=== PATIENT | female | born 1935 | race Caucasian/White ===

== ENCOUNTER 2018-05-21 18:58 | Inpatient (IN) | payer MEDICARE, BC ==
[~2018-05-21] VITALS: Ht 167.6 cm; Wt 81.7 kg
[2018-05-21] MEDS ORDERED: SODIUM CHLORIDE 0.9% 1,000 ML IVB ONE (19:45)
[2018-05-21 20:05] LABS: Basophils # (auto) 0.1 uL; Basophils % (auto) 1.1 % (0.0-2.0); Eosinophils # (auto) 0.1 uL; Eosinophils % (auto) 1.2 % (0.0-7.0); Hematocrit 33.4 % (36.0-46.0); Lymphocytes # (auto) 1.6 uL; Mean Corpuscular Hemoglobin 27.1 pg (28.0-32.0); Mean Corpuscular Volume 82.1 fL (80.0-100.0); Monocytes # (auto) 0.7 uL; Monocytes % (auto) 6.4 % (0.0-12.0); Neutrophils # (auto) 8.3 uL; Neutrophils % (auto) 76.3 % (37.0-80.0); Nucleated Red Blood Cells % 0.1 %; Platelet Count (auto) 360 10^3/uL (140-450); Red Blood Cells 4.07 10^6/uL (4.0-5.20); White Blood Cell 10.8 10^3/uL (4.4-10.8)
[2018-05-21 20:27] LABS: Urine Bacteria NONE SEEN /hpf (None Seen); Urine Blood Negative /uL (Negative); Urine Specific Gravity 1.004 (1.001-1.035); Urine WBC <1 /hpf (0 - 5)
[2018-05-21 20:40] LABS: Alanine Aminotransferase 14 U/L (13-56); Albumin 3.3 g/dL (3.4-5.0); Alkaline Phosphatase 83 U/L (45-117); Anion Gap 12 (5-15); Aspartate Aminotransferase 19 U/L (15-37); BUN/Creatinine Ratio 9.3; Bilirubin, Total 0.9 mg/dL (0.2-1.0); Blood Urea Nitrogen 10 mg/dL (7-18); Calcium 9.1 mg/dL (8.5-10.1); Carbon Dioxide 28 mmol/L (21-32); Chloride 95 mmol/L (98-107); GFR African American 63 mL/min; GFR Non-African American 52 mL/min; Glucose 128 mg/dL (74-106); Magnesium 2.6 mg/dL (1.6-2.6); Potassium 3.6 mmol/L (3.5-5.1); Sodium 135 mmol/L (136-145); Total Protein 7.5 g/dL (6.4-8.2)
[2018-05-21 21:06] LABS: INR 1.07 (0.9-1.15); Partial Thromboplastin Time 29.4 sec (23.78-33.04); Prothrombin Time 11.4 sec (9.27-12.13)
[2018-05-21] MEDS ORDERED: ONDANSETRON HCL 4 MG/2 ML VIAL IV ONE (21:30)
[2018-05-21] MEDS ORDERED: ASPirin 81 mg TAB PO ONE (21:45)
[2018-05-21] MEDS ORDERED: NITROGLYCERIN 0.4 MG SL TAB SL PRN (23:00)
[2018-05-21] MEDS ORDERED: MORPHINE SULF INJ 2 MG/ML SYRINGE 1ML IV PRN (23:00)
[2018-05-21] MEDS ORDERED: ONDANSETRON HCL 4 MG/2 ML VIAL IV PRN (23:15)
[2018-05-21] MEDS ORDERED: TEMAZEPAM 15 MG CAP PO PRN (23:15)
[2018-05-21] MEDS ORDERED: IBUPROFEN 600 MG TAB PO PRN (23:15)
[2018-05-22] VITALS (7 sets, daily range): BP systolic 90–120; BP diastolic 48–63
[2018-05-22] MEDS: ALPRAZolam 0.5 MG TAB PO PRN ×3 (01:15→23:20)
[2018-05-22] MEDS: traMADol HCL 50 MG TAB PO PRN ×2 (01:15→19:59)
[2018-05-22] MEDS ORDERED: GABA100C9 PO (05:14)
[2018-05-22] MEDS ORDERED: TRAM50TA2 PO (05:14)
[2018-05-22] MEDS ORDERED: SPIR25TA89 PO (05:20)
[2018-05-22] MEDS ORDERED: LEVO25TA6 PO (05:20)
[2018-05-22] MEDS ORDERED: PREG50CA PO (05:20)
[2018-05-22] MEDS ORDERED: APIX2.5T OR (05:20)
[2018-05-22] MEDS ORDERED: ROSU20TA14 PO (05:20)
[2018-05-22] MEDS ORDERED: AMIO200T33 PO (05:20)
[2018-05-22] MEDS ORDERED: FURO20TA PO (05:20)
[2018-05-22] MEDS ORDERED: CAR3125T OR (05:20)
[2018-05-22] MEDS ORDERED: DOCU100T15 PO (05:20)
[2018-05-22] MEDS ORDERED: ALPR0.5T PO (05:22)
[2018-05-22] MEDS ORDERED: GABAPENTIN 300 MG CAP PO SCH (06:00)
[2018-05-22] MEDS: MIDODRINE HCL 10 MG TAB PO SCH ×3 (06:24→18:00)
[2018-05-22] MEDS: LEVOTHYROXINE SODIUM 25 MCG TAB PO SCH (06:25)
[2018-05-22 07:11] LABS: Basophils # (auto) 0 uL; Eosinophils # (auto) 0.1 uL; Lymphocytes # (auto) 2.8 uL; Monocytes # (auto) 0.8 uL
[2018-05-22 07:14] LABS: Basophils % (auto) 0.5 % (0.0-2.0); Hematocrit 29.2 % (36.0-46.0); Hemoglobin 9.7 g/dL (12.2-16.2); Lymphocytes % (auto) 26.4 % (10.0-50.0); Mean Corpuscular Hemoglobin 27.1 pg (28.0-32.0); Mean Corpuscular Hgb Conc. 33.2 g/dL (32.0-36.0); Mean Corpuscular Volume 81.7 fL (80.0-100.0); Monocytes % (auto) 7.4 % (0.0-12.0); Neutrophils # (auto) 6.7 uL; Neutrophils % (auto) 64.7 % (37.0-80.0); Platelet Count (auto) 335 10^3/uL (140-450); Red Blood Cells 3.57 10^6/uL (4.0-5.20); Red Cell Distribution Width 18.2 % (11.8-14.3); White Blood Cell 10.4 10^3/uL (4.4-10.8)
[2018-05-22 07:31] LABS: BUN/Creatinine Ratio 12.9; Calcium 8.5 mg/dL (8.5-10.1); Potassium 3.4 mmol/L (3.5-5.1)
[2018-05-22] MEDS: CARVEDILOL 12.5 MG TAB PO SCH ×2 (11:57→15:00)
[2018-05-22] MEDS: AMIODARONE HCL 200 MG TAB PO SCH (11:58)
[2018-05-22] MEDS: DOCUSATE SOD 100 MG CAP PO SCH ×2 (11:58→22:08)
[2018-05-22] MEDS: APIXABAN 2.5 MG TAB PO SCH ×2 (11:58→22:08)
[2018-05-22] MEDS: FUROSEMIDE 40 MG TAB PO SCH (12:00)
[2018-05-22] MEDS ORDERED: ATORVASTATIN 20 MG TAB PO SCH (22:00)
[2018-05-22] MEDS: GABAPENTIN 100 MG CAP PO SCH (22:08)
[2018-05-23 05:00] VITALS: BP 98/50
[2018-05-23] MEDS: GABAPENTIN 100 MG CAP PO SCH ×3 (05:48→21:25)
[2018-05-23] MEDS: MIDODRINE HCL 10 MG TAB PO SCH ×3 (05:48→17:51)
[2018-05-23] MEDS: LEVOTHYROXINE SODIUM 25 MCG TAB PO SCH (05:49)
[2018-05-23] MEDS: traMADol HCL 50 MG TAB PO PRN ×2 (05:49→20:57)
[2018-05-23] MEDS: CARVEDILOL 12.5 MG TAB PO SCH ×2 (09:01→14:59)
[2018-05-23] MEDS: AMIODARONE HCL 200 MG TAB PO SCH (09:01)
[2018-05-23] MEDS: FUROSEMIDE 40 MG TAB PO SCH (09:01)
[2018-05-23] MEDS: APIXABAN 2.5 MG TAB PO SCH ×2 (09:02→21:25)
[2018-05-23] MEDS: DOCUSATE SOD 100 MG CAP PO SCH ×2 (09:02→21:25)
[2018-05-23 09:36] VITALS: BP 116/63
[2018-05-23] MEDS ORDERED: ASPirin 81 mg TAB PO SCH (10:00)
[2018-05-23] MEDS: HYDROmorphone HCL 2 MG TAB PO SCH ×2 (11:37→17:51)
[2018-05-23 12:56] VITALS: BP 110/68
[2018-05-23] MEDS: KETOROLAC TROMETH 60MG/2ML VIAL IM PRN (13:06)
[2018-05-23] MEDS: ALPRAZolam 0.5 MG TAB PO PRN (13:07)
[2018-05-23 17:16] VITALS: BP 105/50
[2018-05-23 22:00] VITALS: BP 90/55
[2018-05-24] MEDS: HYDROmorphone HCL 2 MG TAB PO SCH ×4 (00:20→18:13)
[2018-05-24 05:00] VITALS: BP 108/57
[2018-05-24] MEDS: KETOROLAC TROMETH 60MG/2ML VIAL IM PRN (05:47)
[2018-05-24] MEDS: MIDODRINE HCL 10 MG TAB PO SCH ×3 (06:19→18:12)
[2018-05-24] MEDS: LEVOTHYROXINE SODIUM 25 MCG TAB PO SCH (06:19)
[2018-05-24] MEDS: GABAPENTIN 100 MG CAP PO SCH ×3 (06:19→22:17)
[2018-05-24 08:30] VITALS: BP 95/50
[2018-05-24] MEDS: CARVEDILOL 12.5 MG TAB PO SCH ×2 (10:40→15:36)
[2018-05-24] MEDS: APIXABAN 2.5 MG TAB PO SCH ×2 (10:48→22:17)
[2018-05-24] MEDS: FUROSEMIDE 40 MG TAB PO SCH (10:49)
[2018-05-24] MEDS: DOCUSATE SOD 100 MG CAP PO SCH ×2 (10:49→22:17)
[2018-05-24 13:00] VITALS: BP 101/50
[2018-05-24] MEDS: AMIODARONE HCL 200 MG TAB PO SCH (14:25)
[2018-05-24 17:02] VITALS: BP 102/51
[2018-05-24 22:00] VITALS: BP 128/57
[2018-05-24] MEDS: traMADol HCL 50 MG TAB PO PRN (22:18)
[2018-05-25] MEDS: HYDROmorphone HCL 2 MG TAB PO SCH ×3 (00:51→12:37)
[2018-05-25] MEDS: KETOROLAC TROMETH 60MG/2ML VIAL IM PRN (04:16)
[2018-05-25 06:02] VITALS: BP 99/47
[2018-05-25] MEDS: LEVOTHYROXINE SODIUM 25 MCG TAB PO SCH (06:22)
[2018-05-25] MEDS: GABAPENTIN 100 MG CAP PO SCH ×2 (06:22→13:33)
[2018-05-25] MEDS: MIDODRINE HCL 10 MG TAB PO SCH ×2 (06:22→12:32)
[2018-05-25] MEDS ORDERED: ADENOSINE 69 MG in GIVE UN-DILUTED 0 ML IV STA (08:17)
[2018-05-25 09:00] VITALS: BP 109/51
[2018-05-25] MEDS: FUROSEMIDE 40 MG TAB PO SCH (12:31)
[2018-05-25] MEDS: AMIODARONE HCL 200 MG TAB PO SCH (12:33)
[2018-05-25] MEDS: APIXABAN 2.5 MG TAB PO SCH (12:34)
[2018-05-25] MEDS: DOCUSATE SOD 100 MG CAP PO SCH (12:37)
[2018-05-25] MEDS: CARVEDILOL 12.5 MG TAB PO SCH ×2 (12:37→16:33)
[2018-05-25 12:49] VITALS: BP 139/63
[2018-05-25] MEDS: ALPRAZolam 0.5 MG TAB PO PRN (13:37)
[2018-05-25 17:15] VITALS: BP 130/67
== END 2018-05-25 17:30 | DRG 291 ==
LOC: ER 19:03 → TELE 19:04 → CENTRAL 23:42
PROVIDERS: ADMIT Nurse Practitioner Family; ATTEND Family Medicine
DX: I13.0 Hypertensive heart and chronic kidney disease with heart failure and stage 1 through stage 4 chronic kidney disease, or unspecified chronic kidney disease (principal); I50.43 Acute on chronic combined systolic (congestive) and diastolic (congestive) heart failure; I48.1 Persistent atrial fibrillation; E66.9 Obesity, unspecified; N18.9 Chronic kidney disease, unspecified; I48.91 Unspecified atrial fibrillation; G20 Parkinson's disease; E03.9 Hypothyroidism, unspecified; D64.9 Anemia, unspecified; E78.00 Pure hypercholesterolemia, unspecified; E78.5 Hyperlipidemia, unspecified; F41.9 Anxiety disorder, unspecified; G62.9 Polyneuropathy, unspecified; M84.312A Stress fracture, left shoulder, initial encounter for fracture; I08.0 Rheumatic disorders of both mitral and aortic valves; Z88.0 Allergy status to penicillin; Z88.5 Allergy status to narcotic agent; Z88.1 Allergy status to other antibiotic agents; Z88.8 Allergy status to other drugs, medicaments and biological substances; Z91.81 History of falling; Z68.29 Body mass index [BMI] 29.0-29.9, adult
CPT/HCPCS: 36415; 71045; 73030; 73060; 73200; 78452; 80048; 80053; 81001; 82962; 83735; 83880; 84443; 84484; 85025; 85610; 85730; 87081; 93005; 93306; 94761; 96361; 96374; J0153; J1885; J2405

== ENCOUNTER 2018-06-24 06:03 | Inpatient (IN) | payer MEDICARE, BC ==
[~2018-06-24] VITALS: Ht 167.6 cm; Wt 78.7 kg
[~2018-06-24 06:03] MED LIST: ALPR0.5T PO; AMIO200T33 PO; APIX2.5T OR; CAR3125T OR; CHOL20007 PO; DOCU-94 PO; DOCU100T15 PO; FURO20TA PO; GABA100C9 PO; LACT10SO3 PO; LEVO25TA6 PO; MAGN400S25 PO; METO-281 PO; MID10T PO; MULT-228 PO; NITR0.4S29 SL; ONDA4TAB5 PO; PREG50CA PO; ROSU20TA14 PO; SPIR25TA89 PO; TEMA30CA PO; TRAM50TA2 PO
[2018-06-24 08:45] LABS: Basophils # (auto) 0 uL; Basophils % (auto) 0.5 % (0.0-2.0); Eosinophils # (auto) 0.1 uL; Eosinophils % (auto) 1.1 % (0.0-7.0); Hematocrit 31.9 % (36.0-46.0); Hemoglobin 10.4 g/dL (12.2-16.2); Lymphocytes # (auto) 2.1 uL; Lymphocytes % (auto) 29.6 % (10.0-50.0); Mean Corpuscular Hemoglobin 27.1 pg (28.0-32.0); Mean Corpuscular Hgb Conc. 32.5 g/dL (32.0-36.0); Mean Corpuscular Volume 83.2 fL (80.0-100.0); Monocytes # (auto) 0.4 uL; Monocytes % (auto) 6.1 % (0.0-12.0); Neutrophils # (auto) 4.5 uL; Neutrophils % (auto) 62.7 % (37.0-80.0); Platelet Count (auto) 159 10^3/uL (140-450); Red Blood Cells 3.84 10^6/uL (4.0-5.20); Red Cell Distribution Width 18.4 % (11.8-14.3); White Blood Cell 7.2 10^3/uL (4.4-10.8)
[2018-06-24 08:55] LABS: Albumin 3.3 g/dL (3.4-5.0); BUN/Creatinine Ratio 10.2; Calcium 8.6 mg/dL (8.5-10.1); Potassium 3.7 mmol/L (3.5-5.1)
[2018-06-24 08:59] LABS: Bilirubin, Total 0.6 mg/dL (0.2-1.0); Total Protein 6.7 g/dL (6.4-8.2)
[2018-06-24] MEDS ORDERED: cefTRIAXone 1GM/10ml IVPUSH 10 ML IV ONE (09:30)
[2018-06-24 09:34] LABS: Urine Bacteria MANY /hpf (None Seen); Urine Blood 2+ /uL (Negative); Urine WBC 1689 /hpf (0 - 5); Urine WBC Clumps PRESENT /hpf (None Seen)
[2018-06-24] MEDS ORDERED: MORPHINE SULF INJ 2 MG/ML SYRINGE 1ML IV PRN ×3 (10:00)
[2018-06-24] MEDS ORDERED: NITROGLYCERIN 0.4 MG SL TAB SL PRN (10:00)
[2018-06-24] MEDS ORDERED: TEMAZEPAM 15 MG CAP PO PRN (10:00)
[2018-06-24] MEDS ORDERED: LORazepam 0.5 MG TAB PO PRN (10:00)
[2018-06-24] MEDS ORDERED: SODIUM CHLORIDE 0.9% 1,000 ML IV ONE (10:15)
[2018-06-24 10:28] LABS: CRP High Sensitivity 1.29 mg/dL (< 0.3)
[2018-06-24] MEDS ORDERED: INSREGIDR IV (10:48)
[2018-06-24] MEDS ORDERED: LINE600T IV (10:48)
[2018-06-24] MEDS ORDERED: CARB10TA PO (10:51)
[2018-06-24] MEDS: metroNIDAZOLE 500MG/100ML 100 ML IV SCH ×3 (10:54→22:48)
[2018-06-24] MEDS: PROMETHAZINE HCL 25 MG/ML 1ML IV PRN ×2 (10:56→22:35)
[2018-06-24] MEDS ORDERED: DOCUSATE SOD 100 MG CAP PO PRN (11:15)
[2018-06-24] MEDS: ERTAPENEM SOD INJ 1 GM in SODIUM CHL 0.9% 50 ML IV SCH (11:55)
[2018-06-24] MEDS: PANTOPRAZOLE 40 MG TAB PO SCH (11:55)
[2018-06-24] MEDS: APIXABAN 5 MG TAB PO SCH ×2 (11:55→22:34)
[2018-06-24] MEDS: DAPTOmycin 500 MG in SODIUM CHL 0.9% 50 ML IV SCH (12:40)
[2018-06-24] MEDS: PREGABALIN 25 MG CAP PO SCH (13:09)
[2018-06-24] MEDS: traMADol HCL 50 MG TAB PO PRN (13:33)
[2018-06-24] MEDS: CARBIDOPA W LEVODOPA 25/100mg TABLET PO SCH ×2 (13:36→22:35)
[2018-06-24 19:00] VITALS: BP 98/45
[2018-06-24 22:00] VITALS: BP 98/45
[2018-06-24] MEDS: GABAPENTIN 300 MG CAP PO SCH (22:35)
[2018-06-24] MEDS: ALPRAZolam 0.5 MG TAB PO PRN (22:35)
[2018-06-24] MEDS: ATORVASTATIN 20 MG TAB PO SCH (22:35)
[2018-06-25 05:30] VITALS: BP 124/60
[2018-06-25] MEDS: metroNIDAZOLE 500MG/100ML 100 ML IV SCH ×4 (05:31→22:50)
[2018-06-25] MEDS: CARBIDOPA W LEVODOPA 25/100mg TABLET PO SCH ×3 (06:23→21:38)
[2018-06-25 06:26] LABS: Basophils # (auto) 0 uL; Basophils % (auto) 0.6 % (0.0-2.0); Eosinophils # (auto) 0.1 uL; Eosinophils % (auto) 1.6 % (0.0-7.0); Hematocrit 30.5 % (36.0-46.0); Hemoglobin 9.9 g/dL (12.2-16.2); Lymphocytes # (auto) 1.8 uL; Lymphocytes % (auto) 34.5 % (10.0-50.0); Mean Corpuscular Hemoglobin 27.4 pg (28.0-32.0); Mean Corpuscular Hgb Conc. 32.6 g/dL (32.0-36.0); Mean Corpuscular Volume 84.1 fL (80.0-100.0); Monocytes # (auto) 0.4 uL; Monocytes % (auto) 7.4 % (0.0-12.0); Neutrophils % (auto) 55.9 % (37.0-80.0); Nucleated Red Blood Cells % 0.1 %; Platelet Count (auto) 131 10^3/uL (140-450); Red Blood Cells 3.62 10^6/uL (4.0-5.20); Red Cell Distribution Width 18.8 % (11.8-14.3); White Blood Cell 5.3 10^3/uL (4.4-10.8)
[2018-06-25] MEDS: LEVOTHYROXINE SODIUM 25 MCG TAB PO SCH (06:33)
[2018-06-25 06:53] LABS: Calcium 8.1 mg/dL (8.5-10.1); Potassium 3.6 mmol/L (3.5-5.1)
[2018-06-25 06:59] LABS: BUN/Creatinine Ratio 11.1; Bilirubin, Total 0.5 mg/dL (0.2-1.0)
[2018-06-25 08:32] VITALS: BP 110/61
[2018-06-25] MEDS: PREGABALIN 25 MG CAP PO SCH ×2 (10:00→10:05)
[2018-06-25] MEDS: APIXABAN 5 MG TAB PO SCH ×2 (10:05→21:37)
[2018-06-25] MEDS: GABAPENTIN 300 MG CAP PO SCH ×2 (10:06→21:38)
[2018-06-25] MEDS: PANTOPRAZOLE 40 MG TAB PO SCH (10:06)
[2018-06-25] MEDS: MIDODRINE HCL 10 MG TAB PO SCH (10:06)
[2018-06-25] MEDS: ERTAPENEM SOD INJ 1 GM in SODIUM CHL 0.9% 50 ML IV SCH (10:25)
[2018-06-25 12:09] VITALS: BP 112/69
[2018-06-25] MEDS: DAPTOmycin 500 MG in SODIUM CHL 0.9% 50 ML IV SCH (14:36)
[2018-06-25 17:11] VITALS: BP 116/62
[2018-06-25] MEDS: PROMETHAZINE HCL 25 MG/ML 1ML IV PRN (19:37)
[2018-06-25 20:00] VITALS: BP 108/62
[2018-06-25] MEDS: ATORVASTATIN 20 MG TAB PO SCH (21:37)
[2018-06-25] MEDS: ALPRAZolam 0.5 MG TAB PO PRN (21:38)
[2018-06-25 22:00] VITALS: BP 108/62
[2018-06-26 04:52] VITALS: BP 123/59
[2018-06-26] MEDS: metroNIDAZOLE 500MG/100ML 100 ML IV SCH (04:58)
[2018-06-26] MEDS: PROMETHAZINE HCL 25 MG/ML 1ML IV PRN (04:59)
[2018-06-26] MEDS: CARBIDOPA W LEVODOPA 25/100mg TABLET PO SCH ×3 (06:00→21:21)
[2018-06-26] MEDS: LEVOTHYROXINE SODIUM 25 MCG TAB PO SCH (06:30)
[2018-06-26 09:00] VITALS: BP 115/57
[2018-06-26] MEDS: ERTAPENEM SOD INJ 1 GM in SODIUM CHL 0.9% 50 ML IV SCH (10:22)
[2018-06-26] MEDS: PREGABALIN 25 MG CAP PO SCH (10:23)
[2018-06-26] MEDS: PANTOPRAZOLE 40 MG TAB PO SCH (10:23)
[2018-06-26] MEDS: APIXABAN 5 MG TAB PO SCH ×2 (10:24→21:19)
[2018-06-26] MEDS: MIDODRINE HCL 10 MG TAB PO SCH (10:24)
[2018-06-26] MEDS: GABAPENTIN 300 MG CAP PO SCH ×2 (10:24→21:21)
[2018-06-26] MEDS: ALPRAZolam 0.5 MG TAB PO PRN ×2 (10:25→21:29)
[2018-06-26 13:00] VITALS: BP 131/82
[2018-06-26 17:45] VITALS: BP 123/71
[2018-06-26] MEDS: ATORVASTATIN 20 MG TAB PO SCH (21:19)
[2018-06-26 21:42] VITALS: BP 125/62
[2018-06-27] MEDS: PROMETHAZINE HCL 25 MG/ML 1ML IV PRN ×3 (03:02→21:48)
[2018-06-27 04:51] VITALS: BP 97/48
[2018-06-27] MEDS: CARBIDOPA W LEVODOPA 25/100mg TABLET PO SCH ×3 (06:15→21:42)
[2018-06-27] MEDS: LEVOTHYROXINE SODIUM 25 MCG TAB PO SCH (06:18)
[2018-06-27 06:30] VITALS: BP 120/53
[2018-06-27 06:41] LABS: Basophils # (auto) 0 uL; Basophils % (auto) 0.3 % (0.0-2.0); Eosinophils # (auto) 0.1 uL; Eosinophils % (auto) 1.3 % (0.0-7.0); Hematocrit 30.6 % (36.0-46.0); Lymphocytes # (auto) 2.1 uL; Lymphocytes % (auto) 27.8 % (10.0-50.0); Mean Corpuscular Hemoglobin 27.7 pg (28.0-32.0); Mean Corpuscular Hgb Conc. 32.7 g/dL (32.0-36.0); Mean Corpuscular Volume 84.5 fL (80.0-100.0); Monocytes # (auto) 0.8 uL; Monocytes % (auto) 10.5 % (0.0-12.0); Neutrophils # (auto) 4.5 uL; Neutrophils % (auto) 60.1 % (37.0-80.0); Platelet Count (auto) 119 10^3/uL (140-450); Red Blood Cells 3.62 10^6/uL (4.0-5.20); Red Cell Distribution Width 18.4 % (11.8-14.3); White Blood Cell 7.5 10^3/uL (4.4-10.8)
[2018-06-27 06:56] LABS: Calcium 8.2 mg/dL (8.5-10.1); Potassium 3.7 mmol/L (3.5-5.1)
[2018-06-27 09:00] VITALS: BP 108/64
[2018-06-27] MEDS ORDERED: GENTAMICIN PER PHARMACY 0 ML IV SCH (10:15)
[2018-06-27] MEDS: MIDODRINE HCL 10 MG TAB PO SCH (10:33)
[2018-06-27] MEDS: GABAPENTIN 300 MG CAP PO SCH ×2 (10:33→21:42)
[2018-06-27] MEDS: ALPRAZolam 0.5 MG TAB PO PRN ×2 (10:33→21:48)
[2018-06-27] MEDS: PANTOPRAZOLE 40 MG TAB PO SCH (10:33)
[2018-06-27] MEDS: APIXABAN 5 MG TAB PO SCH ×2 (10:33→21:41)
[2018-06-27] MEDS: PREGABALIN 25 MG CAP PO SCH (10:33)
[2018-06-27] MEDS: GENTAMICIN SULFATE IV SCH ×2 (11:16→22:58)
[2018-06-27] MEDS: D5W 5% IV SCH ×2 (11:16→22:58)
[2018-06-27 13:00] VITALS: BP 115/54
[2018-06-27 17:07] VITALS: BP 105/57
[2018-06-27] MEDS: ATORVASTATIN 20 MG TAB PO SCH (21:41)
[2018-06-27 22:00] VITALS: BP 126/61
[2018-06-28] MEDS: traMADol HCL 50 MG TAB PO PRN (01:45)
[2018-06-28 04:52] VITALS: BP 124/63
[2018-06-28] MEDS: CARBIDOPA W LEVODOPA 25/100mg TABLET PO SCH ×3 (06:20→22:50)
[2018-06-28] MEDS: LEVOTHYROXINE SODIUM 25 MCG TAB PO SCH (06:21)
[2018-06-28 06:28] LABS: Basophils # (auto) 0 uL; Eosinophils # (auto) 0.1 uL; Hemoglobin 9.8 g/dL (12.2-16.2); Lymphocytes # (auto) 2.4 uL; Monocytes # (auto) 0.7 uL; Neutrophils # (auto) 3.8 uL
[2018-06-28 06:29] LABS: Basophils % (auto) 0.4 % (0.0-2.0); Eosinophils % (auto) 1.8 % (0.0-7.0); Hematocrit 30.6 % (36.0-46.0); Lymphocytes % (auto) 33.7 % (10.0-50.0); Mean Corpuscular Hemoglobin 26.7 pg (28.0-32.0); Mean Corpuscular Volume 83.4 fL (80.0-100.0); Monocytes % (auto) 10.3 % (0.0-12.0); Neutrophils % (auto) 53.8 % (37.0-80.0); Platelet Count (auto) 136 10^3/uL (140-450); Red Blood Cells 3.67 10^6/uL (4.0-5.20); Red Cell Distribution Width 18.3 % (11.8-14.3); White Blood Cell 7.1 10^3/uL (4.4-10.8)
[2018-06-28 06:43] LABS: BUN/Creatinine Ratio 4.5; Calcium 8.4 mg/dL (8.5-10.1); Potassium 3.8 mmol/L (3.5-5.1)
[2018-06-28 09:02] VITALS: BP 120/57
[2018-06-28] MEDS: APIXABAN 5 MG TAB PO SCH ×2 (09:46→22:50)
[2018-06-28] MEDS: GABAPENTIN 300 MG CAP PO SCH ×2 (09:46→22:50)
[2018-06-28] MEDS: MIDODRINE HCL 10 MG TAB PO SCH (09:46)
[2018-06-28] MEDS: PANTOPRAZOLE 40 MG TAB PO SCH (09:46)
[2018-06-28] MEDS: PREGABALIN 25 MG CAP PO SCH (09:46)
[2018-06-28] MEDS: D5W 5% IV SCH ×2 (10:54→23:00)
[2018-06-28] MEDS: GENTAMICIN SULFATE IV SCH ×2 (10:54→23:00)
[2018-06-28 13:00] VITALS: BP 123/63
[2018-06-28 17:00] VITALS: BP 131/63
[2018-06-28 21:30] VITALS: BP 135/78
[2018-06-28] MEDS: ATORVASTATIN 20 MG TAB PO SCH (22:50)
[2018-06-28] MEDS: PROMETHAZINE HCL 25 MG/ML 1ML IV PRN (23:02)
[2018-06-28] MEDS: ALPRAZolam 0.5 MG TAB PO PRN (23:03)
[2018-06-29 05:00] VITALS: BP 119/60
[2018-06-29] MEDS: CARBIDOPA W LEVODOPA 25/100mg TABLET PO SCH ×3 (06:24→23:02)
[2018-06-29] MEDS: LEVOTHYROXINE SODIUM 25 MCG TAB PO SCH (06:24)
[2018-06-29 07:03] LABS: Basophils # (auto) 0 uL; Basophils % (auto) 0.5 % (0.0-2.0); Eosinophils # (auto) 0.2 uL; Eosinophils % (auto) 2.6 % (0.0-7.0); Hematocrit 29.7 % (36.0-46.0); Hemoglobin 9.9 g/dL (12.2-16.2); Lymphocytes # (auto) 2.5 uL; Lymphocytes % (auto) 38.1 % (10.0-50.0); Mean Corpuscular Hgb Conc. 33.4 g/dL (32.0-36.0); Mean Corpuscular Volume 83.7 fL (80.0-100.0); Monocytes # (auto) 0.7 uL; Monocytes % (auto) 10.4 % (0.0-12.0); Neutrophils # (auto) 3.1 uL; Neutrophils % (auto) 48.4 % (37.0-80.0); Nucleated Red Blood Cells % 0.1 %; Platelet Count (auto) 159 10^3/uL (140-450); Red Blood Cells 3.54 10^6/uL (4.0-5.20); Red Cell Distribution Width 18.4 % (11.8-14.3); White Blood Cell 6.5 10^3/uL (4.4-10.8)
[2018-06-29 07:28] LABS: Calcium 8.2 mg/dL (8.5-10.1); Potassium 3.8 mmol/L (3.5-5.1)
[2018-06-29 09:00] VITALS: BP 119/64
[2018-06-29] MEDS: MIDODRINE HCL 10 MG TAB PO SCH (10:00)
[2018-06-29] MEDS: GABAPENTIN 300 MG CAP PO SCH ×2 (10:00→23:01)
[2018-06-29] MEDS: PREGABALIN 25 MG CAP PO SCH (10:58)
[2018-06-29] MEDS: APIXABAN 5 MG TAB PO SCH ×2 (10:58→23:01)
[2018-06-29] MEDS: PANTOPRAZOLE 40 MG TAB PO SCH (10:59)
[2018-06-29] MEDS: ALPRAZolam 0.5 MG TAB PO PRN ×2 (11:04→23:08)
[2018-06-29 13:09] VITALS: BP 108/46
[2018-06-29 17:05] VITALS: BP 122/60
[2018-06-29] MEDS: GENTAMICIN SULFATE 80 MG in D5W 5% 100 ML IV SCH (18:40)
[2018-06-29] MEDS: ATORVASTATIN 20 MG TAB PO SCH (23:02)
[2018-06-30 05:00] VITALS: BP 122/61
[2018-06-30] MEDS: LEVOTHYROXINE SODIUM 25 MCG TAB PO SCH (05:56)
[2018-06-30] MEDS: CARBIDOPA W LEVODOPA 25/100mg TABLET PO SCH ×3 (05:56→21:43)
[2018-06-30 06:03] LABS: Basophils # (auto) 0 uL; Basophils % (auto) 0.4 % (0.0-2.0); Eosinophils # (auto) 0.1 uL; Eosinophils % (auto) 2.4 % (0.0-7.0); Hematocrit 30.9 % (36.0-46.0); Hemoglobin 10.2 g/dL (12.2-16.2); Lymphocytes # (auto) 2.3 uL; Mean Corpuscular Hemoglobin 27.4 pg (28.0-32.0); Mean Corpuscular Volume 82.8 fL (80.0-100.0); Monocytes # (auto) 0.6 uL; Monocytes % (auto) 9.8 % (0.0-12.0); Neutrophils # (auto) 3.1 uL; Neutrophils % (auto) 50.4 % (37.0-80.0); Nucleated Red Blood Cells % 0.1 %; Platelet Count (auto) 193 10^3/uL (140-450); Red Blood Cells 3.73 10^6/uL (4.0-5.20); Red Cell Distribution Width 18.6 % (11.8-14.3); White Blood Cell 6.1 10^3/uL (4.4-10.8)
[2018-06-30 06:17] LABS: BUN/Creatinine Ratio 5.3; Calcium 8.5 mg/dL (8.5-10.1)
[2018-06-30 08:00] VITALS: BP 113/59
[2018-06-30] MEDS: GABAPENTIN 300 MG CAP PO SCH ×2 (10:00→21:43)
[2018-06-30] MEDS: APIXABAN 5 MG TAB PO SCH ×2 (10:39→21:43)
[2018-06-30] MEDS: MIDODRINE HCL 10 MG TAB PO SCH (10:40)
[2018-06-30] MEDS: PANTOPRAZOLE 40 MG TAB PO SCH (10:40)
[2018-06-30] MEDS: PREGABALIN 25 MG CAP PO SCH (10:40)
[2018-06-30] MEDS: GENTAMICIN SULFATE 80 MG in D5W 5% 100 ML IV SCH (11:41)
[2018-06-30] MEDS: ALPRAZolam 0.5 MG TAB PO PRN (12:02)
[2018-06-30 13:00] VITALS: BP 120/60
[2018-06-30 16:45] VITALS: BP 126/64
[2018-06-30] MEDS: ATORVASTATIN 20 MG TAB PO SCH (21:43)
[2018-06-30] MEDS: traMADol HCL 50 MG TAB PO PRN (21:44)
[2018-06-30 22:00] VITALS: BP 117/50
[2018-07-01] MEDS: GENTAMICIN SULFATE 80 MG in D5W 5% 100 ML IV SCH (05:11)
[2018-07-01 05:15] VITALS: BP 132/74
[2018-07-01 05:47] LABS: Basophils # (auto) 0 uL; Basophils % (auto) 0.4 % (0.0-2.0); Eosinophils # (auto) 0.2 uL; Eosinophils % (auto) 2.8 % (0.0-7.0); Hemoglobin 10.4 g/dL (12.2-16.2); Lymphocytes # (auto) 2.1 uL; Lymphocytes % (auto) 36.9 % (10.0-50.0); Mean Corpuscular Hgb Conc. 32.5 g/dL (32.0-36.0); Mean Corpuscular Volume 83.1 fL (80.0-100.0); Monocytes # (auto) 0.5 uL; Monocytes % (auto) 8.8 % (0.0-12.0); Neutrophils % (auto) 51.1 % (37.0-80.0); Nucleated Red Blood Cells % 0.1 %; Platelet Count (auto) 229 10^3/uL (140-450); Red Blood Cells 3.85 10^6/uL (4.0-5.20); Red Cell Distribution Width 18.7 % (11.8-14.3); White Blood Cell 5.8 10^3/uL (4.4-10.8)
[2018-07-01 05:55] LABS: BUN/Creatinine Ratio 7.6; Calcium 8.5 mg/dL (8.5-10.1); Potassium 3.8 mmol/L (3.5-5.1)
[2018-07-01] MEDS: CARBIDOPA W LEVODOPA 25/100mg TABLET PO SCH ×3 (06:16→22:38)
[2018-07-01] MEDS: LEVOTHYROXINE SODIUM 25 MCG TAB PO SCH (06:16)
[2018-07-01 09:00] VITALS: BP 131/62
[2018-07-01] MEDS: PREGABALIN 25 MG CAP PO SCH (09:55)
[2018-07-01] MEDS: APIXABAN 5 MG TAB PO SCH ×2 (09:55→22:38)
[2018-07-01] MEDS: GABAPENTIN 300 MG CAP PO SCH ×2 (09:55→22:38)
[2018-07-01] MEDS: PANTOPRAZOLE 40 MG TAB PO SCH (09:56)
[2018-07-01] MEDS: MIDODRINE HCL 10 MG TAB PO SCH (09:56)
[2018-07-01] MEDS: ALPRAZolam 0.5 MG TAB PO PRN ×2 (10:02→22:39)
[2018-07-01 13:00] VITALS: BP 133/100
[2018-07-01] MEDS ORDERED: CHOLECALCIFEROL (VITD3) 1,000 UNIT TAB PO ONE (16:15)
[2018-07-01] MEDS ORDERED: MULTIPLE VITAMIN TAB PO ONE (16:15)
[2018-07-01 17:00] VITALS: BP 123/60
[2018-07-01 21:29] VITALS: BP 113/56
[2018-07-01] MEDS: ATORVASTATIN 20 MG TAB PO SCH (22:38)
[2018-07-02 05:00] VITALS: BP 130/63
[2018-07-02] MEDS: GENTAMICIN SULFATE 120 MG in D5W 5% 100 ML IV SCH (05:28)
[2018-07-02] MEDS: LACTULOSE 20Gm/30ML SOLN PO PRN ×2 (05:34→21:55)
[2018-07-02] MEDS: CARBIDOPA W LEVODOPA 25/100mg TABLET PO SCH ×3 (06:34→21:55)
[2018-07-02] MEDS: LEVOTHYROXINE SODIUM 25 MCG TAB PO SCH (06:34)
[2018-07-02 07:02] LABS: Basophils # (auto) 0 uL; Basophils % (auto) 0.3 % (0.0-2.0); Eosinophils # (auto) 0.1 uL; Eosinophils % (auto) 1.8 % (0.0-7.0); Hematocrit 31.2 % (36.0-46.0); Hemoglobin 10.2 g/dL (12.2-16.2); Lymphocytes # (auto) 2.3 uL; Lymphocytes % (auto) 38.5 % (10.0-50.0); Mean Corpuscular Hemoglobin 27.3 pg (28.0-32.0); Mean Corpuscular Hgb Conc. 32.8 g/dL (32.0-36.0); Monocytes # (auto) 0.5 uL; Monocytes % (auto) 7.9 % (0.0-12.0); Neutrophils % (auto) 51.5 % (37.0-80.0); Platelet Count (auto) 246 10^3/uL (140-450); Red Blood Cells 3.76 10^6/uL (4.0-5.20); Red Cell Distribution Width 18.3 % (11.8-14.3); White Blood Cell 5.9 10^3/uL (4.4-10.8)
[2018-07-02 07:11] LABS: BUN/Creatinine Ratio 7.9; Calcium 8.6 mg/dL (8.5-10.1); Potassium 3.8 mmol/L (3.5-5.1)
[2018-07-02 09:00] VITALS: BP 116/61
[2018-07-02] MEDS: PREGABALIN 25 MG CAP PO SCH (10:00)
[2018-07-02] MEDS: CHOLECALCIFEROL (VITD3) 1,000 UNIT TAB PO SCH (10:00)
[2018-07-02] MEDS: GABAPENTIN 300 MG CAP PO SCH ×2 (10:00→21:55)
[2018-07-02] MEDS: PANTOPRAZOLE 40 MG TAB PO SCH (10:00)
[2018-07-02] MEDS: APIXABAN 5 MG TAB PO SCH ×2 (10:00→21:56)
[2018-07-02] MEDS: MULTIPLE VITAMIN TAB PO SCH (10:44)
[2018-07-02] MEDS: MIDODRINE HCL 10 MG TAB PO SCH (10:44)
[2018-07-02] MEDS ORDERED: FLUCONAZOLE 200MG/100ML 100 ML IV ONE (10:45)
[2018-07-02 13:00] VITALS: BP 136/66
[2018-07-02 17:00] VITALS: BP 121/77
[2018-07-02] MEDS: ATORVASTATIN 20 MG TAB PO SCH (21:55)
[2018-07-02] MEDS: ALPRAZolam 0.5 MG TAB PO PRN (21:56)
[2018-07-02 22:00] VITALS: BP 140/64
[2018-07-03 05:00] VITALS: BP 116/63
[2018-07-03] MEDS: GENTAMICIN SULFATE 120 MG in D5W 5% 100 ML IV SCH (05:31)
[2018-07-03] MEDS: CARBIDOPA W LEVODOPA 25/100mg TABLET PO SCH ×3 (06:30→21:11)
[2018-07-03] MEDS: LEVOTHYROXINE SODIUM 25 MCG TAB PO SCH (06:30)
[2018-07-03 08:07] VITALS: BP 112/59
[2018-07-03] MEDS: FLUCONAZOLE 200MG/100ML 100 ML IV SCH (10:34)
[2018-07-03] MEDS: CHOLECALCIFEROL (VITD3) 1,000 UNIT TAB PO SCH (10:35)
[2018-07-03] MEDS: PREGABALIN 25 MG CAP PO SCH (10:35)
[2018-07-03] MEDS: GABAPENTIN 300 MG CAP PO SCH ×2 (10:35→21:11)
[2018-07-03] MEDS: MIDODRINE HCL 10 MG TAB PO SCH (10:35)
[2018-07-03] MEDS: ALPRAZolam 0.5 MG TAB PO PRN ×2 (10:37→21:10)
[2018-07-03] MEDS: APIXABAN 5 MG TAB PO SCH ×2 (10:37→21:11)
[2018-07-03] MEDS: MULTIPLE VITAMIN TAB PO SCH (10:37)
[2018-07-03] MEDS: PANTOPRAZOLE 40 MG TAB PO SCH (10:37)
[2018-07-03 12:13] VITALS: BP 143/86
[2018-07-03 17:31] VITALS: BP 127/66
[2018-07-03] MEDS: ATORVASTATIN 20 MG TAB PO SCH (21:10)
[2018-07-03 22:46] VITALS: BP 94/51
[2018-07-04] MEDS: GENTAMICIN SULFATE 120 MG in D5W 5% 100 ML IV SCH (04:39)
[2018-07-04 05:25] VITALS: BP 133/73
[2018-07-04 05:53] LABS: Basophils # (auto) 0 uL; Basophils % (auto) 0.4 % (0.0-2.0); Eosinophils # (auto) 0.2 uL; Eosinophils % (auto) 2.4 % (0.0-7.0); Hematocrit 32.2 % (36.0-46.0); Hemoglobin 10.4 g/dL (12.2-16.2); Lymphocytes # (auto) 2.4 uL; Lymphocytes % (auto) 34.7 % (10.0-50.0); Mean Corpuscular Hemoglobin 27.2 pg (28.0-32.0); Mean Corpuscular Hgb Conc. 32.3 g/dL (32.0-36.0); Mean Corpuscular Volume 84.2 fL (80.0-100.0); Monocytes # (auto) 0.5 uL; Monocytes % (auto) 7.1 % (0.0-12.0); Neutrophils # (auto) 3.8 uL; Neutrophils % (auto) 55.4 % (37.0-80.0); Nucleated Red Blood Cells % 0.1 %; Platelet Count (auto) 285 10^3/uL (140-450); Red Blood Cells 3.82 10^6/uL (4.0-5.20); White Blood Cell 6.9 10^3/uL (4.4-10.8)
[2018-07-04] MEDS: LEVOTHYROXINE SODIUM 25 MCG TAB PO SCH (06:10)
[2018-07-04] MEDS: CARBIDOPA W LEVODOPA 25/100mg TABLET PO SCH ×3 (06:10→21:24)
[2018-07-04 06:23] LABS: Anion Gap 10 (5-15); BUN/Creatinine Ratio 7.9; Blood Urea Nitrogen 8 mg/dL (7-18); Calcium 8.4 mg/dL (8.5-10.1); Carbon Dioxide 25 mmol/L (21-32); Chloride 104 mmol/L (98-107); GFR African American 67 mL/min; GFR Non-African American 56 mL/min; Glucose 106 mg/dL (74-106); Potassium 4.2 mmol/L (3.5-5.1); Sodium 139 mmol/L (136-145)
[2018-07-04 08:00] VITALS: BP 111/63
[2018-07-04 08:47] VITALS: BP 111/63
[2018-07-04] MEDS: GABAPENTIN 300 MG CAP PO SCH ×2 (10:25→21:24)
[2018-07-04] MEDS: FLUCONAZOLE 200MG/100ML 100 ML IV SCH (10:25)
[2018-07-04] MEDS: MULTIPLE VITAMIN TAB PO SCH (10:26)
[2018-07-04] MEDS: APIXABAN 5 MG TAB PO SCH ×2 (10:26→21:24)
[2018-07-04] MEDS: PREGABALIN 25 MG CAP PO SCH (10:26)
[2018-07-04] MEDS: CHOLECALCIFEROL (VITD3) 1,000 UNIT TAB PO SCH (10:26)
[2018-07-04] MEDS: PANTOPRAZOLE 40 MG TAB PO SCH (10:26)
[2018-07-04] MEDS: MIDODRINE HCL 10 MG TAB PO SCH (10:26)
[2018-07-04] MEDS: ALPRAZolam 0.5 MG TAB PO PRN ×2 (10:31→21:24)
[2018-07-04 13:31] VITALS: BP 110/65
[2018-07-04 17:31] VITALS: BP 112/67
[2018-07-04] MEDS: ATORVASTATIN 20 MG TAB PO SCH (21:24)
[2018-07-04 22:00] VITALS: BP 120/62
[2018-07-05 05:52] VITALS: BP 123/60
[2018-07-05] MEDS: GENTAMICIN SULFATE 120 MG in D5W 5% 100 ML IV SCH (05:53)
[2018-07-05 06:02] LABS: Basophils # (auto) 0 uL; Basophils % (auto) 0.5 % (0.0-2.0); Eosinophils # (auto) 0.1 uL; Eosinophils % (auto) 1.7 % (0.0-7.0); Hematocrit 32.7 % (36.0-46.0); Hemoglobin 10.7 g/dL (12.2-16.2); Lymphocytes # (auto) 2.6 uL; Lymphocytes % (auto) 33.8 % (10.0-50.0); Mean Corpuscular Hemoglobin 27.5 pg (28.0-32.0); Mean Corpuscular Hgb Conc. 32.8 g/dL (32.0-36.0); Mean Corpuscular Volume 83.7 fL (80.0-100.0); Monocytes # (auto) 0.6 uL; Monocytes % (auto) 7.5 % (0.0-12.0); Neutrophils # (auto) 4.3 uL; Neutrophils % (auto) 56.5 % (37.0-80.0); Nucleated Red Blood Cells % 0.1 %; Platelet Count (auto) 331 10^3/uL (140-450); Red Blood Cells 3.91 10^6/uL (4.0-5.20); Red Cell Distribution Width 18.9 % (11.8-14.3); White Blood Cell 7.6 10^3/uL (4.4-10.8)
[2018-07-05] MEDS: LEVOTHYROXINE SODIUM 25 MCG TAB PO SCH (06:22)
[2018-07-05] MEDS: CARBIDOPA W LEVODOPA 25/100mg TABLET PO SCH ×3 (06:22→22:38)
[2018-07-05 06:26] LABS: BUN/Creatinine Ratio 13.4; Calcium 8.7 mg/dL (8.5-10.1); Potassium 4.7 mmol/L (3.5-5.1)
[2018-07-05 08:00] VITALS: BP 126/67
[2018-07-05] MEDS: FLUCONAZOLE 200MG/100ML 100 ML IV SCH (09:45)
[2018-07-05] MEDS: APIXABAN 5 MG TAB PO SCH ×2 (09:46→22:39)
[2018-07-05] MEDS: PREGABALIN 25 MG CAP PO SCH (09:46)
[2018-07-05] MEDS: MULTIPLE VITAMIN TAB PO SCH (09:46)
[2018-07-05] MEDS: PANTOPRAZOLE 40 MG TAB PO SCH (09:47)
[2018-07-05] MEDS: MIDODRINE HCL 10 MG TAB PO SCH (09:47)
[2018-07-05] MEDS: CHOLECALCIFEROL (VITD3) 1,000 UNIT TAB PO SCH (09:47)
[2018-07-05] MEDS: GABAPENTIN 300 MG CAP PO SCH ×2 (09:47→22:39)
[2018-07-05 12:00] VITALS: BP 119/66
[2018-07-05 17:00] VITALS: BP 117/69
[2018-07-05 21:30] VITALS: BP 110/51
[2018-07-05] MEDS: ATORVASTATIN 20 MG TAB PO SCH (22:39)
[2018-07-06] MEDS: ALPRAZolam 0.5 MG TAB PO PRN ×2 (03:04→21:49)
[2018-07-06 05:00] VITALS: BP 140/80
[2018-07-06] MEDS: GENTAMICIN SULFATE 120 MG in D5W 5% 100 ML IV SCH (05:26)
[2018-07-06] MEDS: CARBIDOPA W LEVODOPA 25/100mg TABLET PO SCH ×3 (06:56→21:39)
[2018-07-06] MEDS: LEVOTHYROXINE SODIUM 25 MCG TAB PO SCH (06:56)
[2018-07-06] MEDS: PROMETHAZINE HCL 25 MG/ML 1ML IV PRN (07:07)
[2018-07-06 08:53] VITALS: BP 91/64
[2018-07-06] MEDS: FLUCONAZOLE 200MG/100ML 100 ML IV SCH (10:22)
[2018-07-06] MEDS: MIDODRINE HCL 10 MG TAB PO SCH (10:23)
[2018-07-06] MEDS: PREGABALIN 25 MG CAP PO SCH (10:23)
[2018-07-06] MEDS: GABAPENTIN 300 MG CAP PO SCH ×2 (10:24→21:39)
[2018-07-06] MEDS: CHOLECALCIFEROL (VITD3) 1,000 UNIT TAB PO SCH (10:24)
[2018-07-06] MEDS: MULTIPLE VITAMIN TAB PO SCH (10:24)
[2018-07-06] MEDS: PANTOPRAZOLE 40 MG TAB PO SCH (10:27)
[2018-07-06] MEDS: APIXABAN 5 MG TAB PO SCH ×2 (10:27→21:39)
[2018-07-06 11:17] LABS: Albumin 3.3 g/dL (3.4-5.0); Bilirubin, Total 0.3 mg/dL (0.2-1.0); Calcium 8.5 mg/dL (8.5-10.1); Potassium 4.1 mmol/L (3.5-5.1); Total Protein 7.1 g/dL (6.4-8.2)
[2018-07-06 12:47] VITALS: BP 140/93
[2018-07-06 20:00] VITALS: BP 103/48
[2018-07-06] MEDS: ATORVASTATIN 20 MG TAB PO SCH (21:39)
[2018-07-07 05:00] VITALS: BP 119/62
[2018-07-07] MEDS: GENTAMICIN SULFATE 120 MG in D5W 5% 100 ML IV SCH (05:24)
[2018-07-07] MEDS: CARBIDOPA W LEVODOPA 25/100mg TABLET PO SCH (06:28)
[2018-07-07] MEDS: LEVOTHYROXINE SODIUM 25 MCG TAB PO SCH (06:29)
[2018-07-07 07:00] VITALS: BP 104/71
[2018-07-07 07:48] VITALS: BP 104/71
[2018-07-07] MEDS: FLUCONAZOLE 200MG/100ML 100 ML IV SCH (09:23)
[2018-07-07] MEDS: PREGABALIN 25 MG CAP PO SCH (09:24)
[2018-07-07] MEDS: CHOLECALCIFEROL (VITD3) 1,000 UNIT TAB PO SCH (09:24)
[2018-07-07] MEDS: GABAPENTIN 300 MG CAP PO SCH (09:24)
[2018-07-07] MEDS: PANTOPRAZOLE 40 MG TAB PO SCH (09:25)
[2018-07-07] MEDS: MULTIPLE VITAMIN TAB PO SCH (09:25)
[2018-07-07] MEDS: MIDODRINE HCL 10 MG TAB PO SCH (09:25)
[2018-07-07] MEDS: APIXABAN 5 MG TAB PO SCH (09:25)
[2018-07-07] MEDS: ALPRAZolam 0.5 MG TAB PO PRN (09:28)
[2018-07-07 11:57] VITALS: BP 116/66
[2018-07-07 12:01] VITALS: BP 126/70
== END 2018-07-07 12:05 | DRG 871 ==
LOC: EDBD 06:03 → ER 06:03 → TELE 06:04 → TELE-EAST 19:12
PROVIDERS: ADMIT Internal Medicine; ATTEND Family Medicine
DX: A41.9 Sepsis, unspecified organism (principal); N17.0 Acute kidney failure with tubular necrosis; I50.33 Acute on chronic diastolic (congestive) heart failure; E44.1 Mild protein-calorie malnutrition; B37.49 Other urogenital candidiasis; D68.69 Other thrombophilia; M48.56XA Collapsed vertebra, not elsewhere classified, lumbar region, initial encounter for fracture; I48.92 Unspecified atrial flutter; N13.6 Pyonephrosis; R00.1 Bradycardia, unspecified; I11.0 Hypertensive heart disease with heart failure; G20 Parkinson's disease; E03.9 Hypothyroidism, unspecified; B96.5 Pseudomonas (aeruginosa) (mallei) (pseudomallei) as the cause of diseases classified elsewhere; Z82.5 Family history of asthma and other chronic lower respiratory diseases; Z82.0 Family history of epilepsy and other diseases of the nervous system; Z84.1 Family history of disorders of kidney and ureter; Z83.3 Family history of diabetes mellitus; Z80.9 Family history of malignant neoplasm, unspecified; E78.5 Hyperlipidemia, unspecified; F41.9 Anxiety disorder, unspecified; I48.0 Paroxysmal atrial fibrillation; Z87.440 Personal history of urinary (tract) infections; Z90.710 Acquired absence of both cervix and uterus; Z90.49 Acquired absence of other specified parts of digestive tract; Z68.28 Body mass index [BMI] 28.0-28.9, adult; Z88.6 Allergy status to analgesic agent; Z88.1 Allergy status to other antibiotic agents; Z88.0 Allergy status to penicillin; Z88.8 Allergy status to other drugs, medicaments and biological substances; K52.9 Noninfective gastroenteritis and colitis, unspecified
CPT/HCPCS: 36415; 51702; 71045; 74176; 80048; 80053; 80170; 81001; 82150; 82565; 83605; 83690; 83880; 85025; 85652; 86141; 87040; 87081; 87086; 87088; 87186; 93005; 94761; 96365; 96367; 96375; 97110; 97116; 97163; 97530; J0696; J1335; J1450; J3490; J7060

== ENCOUNTER 2018-12-10 12:18 | Emergency (ER) | payer MEDICARE, BC ==
[~2018-12-10] VITALS: Ht 154.9 cm; Wt 78.0 kg
[~2018-12-10 12:18] MED LIST changes: -DOCU-94 PO; +INSREGIDR IV; +LEVO75TA50 PO; -MAGN400S25 PO; -METO-281 PO; -NITR0.4S29 SL; -ROSU20TA14 PO; -SPIR25TA89 PO
[2018-12-10 13:45] LABS: Urine Bacteria MANY /hpf (None Seen); Urine Blood 1+ /uL (Negative); Urine Specific Gravity 1.015 (1.001-1.035); Urine WBC 2964 /hpf (0 - 5); Urine WBC Clumps PRESENT /hpf (None Seen)
[2018-12-10 14:17] LABS: Basophils # (auto) 0.1 uL; Eosinophils # (auto) 0.1 uL; Hemoglobin 11.6 g/dL (12.2-16.2); Lymphocytes # (auto) 1.9 uL; Monocytes # (auto) 0.6 uL
[2018-12-10 14:18] LABS: Basophils % (auto) 0.6 % (0.0-2.0); Eosinophils % (auto) 1.2 % (0.0-7.0); Hematocrit 36.6 % (36.0-46.0); Lymphocytes % (auto) 18.5 % (10.0-50.0); Mean Corpuscular Hemoglobin 26.2 pg (28.0-32.0); Mean Corpuscular Hgb Conc. 31.8 g/dL (32.0-36.0); Mean Corpuscular Volume 82.4 fL (80.0-100.0); Monocytes % (auto) 6.4 % (0.0-12.0); Neutrophils # (auto) 7.3 uL; Neutrophils % (auto) 73.3 % (37.0-80.0); Platelet Count (auto) 233 10^3/uL (140-450); Red Blood Cells 4.44 10^6/uL (4.0-5.20); Red Cell Distribution Width 17.7 % (11.8-14.3)
[2018-12-10 14:38] LABS: Alanine Aminotransferase 9 U/L (13-56); Albumin 3.5 g/dL (3.4-5.0); Anion Gap 4 (5-15); Blood Urea Nitrogen 23 mg/dL (7-18); Calcium 8.6 mg/dL (8.5-10.1); Carbon Dioxide 30 mmol/L (21-32); Chloride 102 mmol/L (98-107); Glucose 97 mg/dL (74-106); Potassium 4.7 mmol/L (3.5-5.1); Sodium 136 mmol/L (136-145)
[2018-12-10 14:43] LABS: Alkaline Phosphatase 119 U/L (45-117); Aspartate Aminotransferase 17 U/L (15-37); BUN/Creatinine Ratio 15.8; Bilirubin, Total 0.5 mg/dL (0.2-1.0); GFR African American 44 mL/min; GFR Non-African American 36 mL/min; Total Protein 7.2 g/dL (6.4-8.2)
[2018-12-10] MEDS ORDERED: cefTRIAXone 1GM/50ML D5W 50 ML IV ONE (15:00)
[2018-12-10] MEDS ORDERED: VANCOMYCIN 1GM/250ML 250 ML IV ONE (15:30)
[2018-12-10 17:09] VITALS: BP 104/70
== END 2018-12-10 17:18 | disposition home or self-care (01) ==
LOC: ER 12:18
DX: N39.0 Urinary tract infection, site not specified (principal); I48.91 Unspecified atrial fibrillation; I11.0 Hypertensive heart disease with heart failure; I50.9 Heart failure, unspecified; E78.5 Hyperlipidemia, unspecified; E07.9 Disorder of thyroid, unspecified; Z90.49 Acquired absence of other specified parts of digestive tract; Z90.710 Acquired absence of both cervix and uterus; Z88.0 Allergy status to penicillin; Z88.6 Allergy status to analgesic agent; Z88.8 Allergy status to other drugs, medicaments and biological substances
CPT/HCPCS: 36415; 80053; 81001; 84484; 85025; 87086; 93005; 96365; 99284; J3370

== ENCOUNTER 2019-01-15 20:07 | Inpatient (IN) | payer MEDICARE, BC | END 2019-01-21 17:10 | disposition home health service (06) | LOC: TELE 01-16 01:41 → TELE-CENTR 01-19 19:36 → CENTRAL 01-21 02:16 → ER 20:07 → CENTRAL 01-18 13:20 | DX: J20.9 Acute bronchitis, unspecified (principal); I13.0 Hypertensive heart and chronic kidney disease with heart failure and stage 1 through stage 4 chronic kidney disease, or unspecified chronic kidney disease; K57.92 Diverticulitis of intestine, part unspecified, without perforation or abscess without bleeding; E44.1 Mild protein-calorie malnutrition; J44.0 Chronic obstructive pulmonary disease with (acute) lower respiratory infection; I48.92 Unspecified atrial flutter; N30.90 Cystitis, unspecified without hematuria; I50.9 Heart failure, unspecified; N18.9 Chronic kidney disease, unspecified; D63.8 Anemia in other chronic diseases classified elsewhere; I70.90 Unspecified atherosclerosis; E03.9 Hypothyroidism, unspecified; F41.9 Anxiety disorder, unspecified; E78.5 Hyperlipidemia, unspecified ==

== ENCOUNTER 2019-05-17 14:02 | Emergency (ER) | payer MEDICARE, OTHER ==
[~2019-05-17] VITALS: Ht 162.6 cm; Wt 77.1 kg
[~2019-05-17 14:02] MED LIST changes: -ALPR0.5T PO; +ALPR1TAB2 PO; +CARB25TA2 PO; +CELE100C82 PO; +GABA300C11 PO; -INSREGIDR IV; -LACT10SO3 PO; -LEVO25TA6 PO; -MID10T PO; -PREG50CA PO; +RANO500T2 PO; -TEMA30CA PO
[2019-05-17 15:45] VITALS: BP 127/82
[2019-05-17 15:49] LABS: Urine Bacteria NONE SEEN /hpf (None Seen); Urine Blood Negative /uL (Negative); Urine Specific Gravity 1.004 (1.001-1.035); Urine WBC 2 /hpf (0 - 5)
== END 2019-05-17 17:33 | disposition home or self-care (01) ==
LOC: ER 14:05
DX: M79.18 Myalgia, other site (principal); M54.9 Dorsalgia, unspecified; R10.30 Lower abdominal pain, unspecified; R30.0 Dysuria; I48.91 Unspecified atrial fibrillation; I13.0 Hypertensive heart and chronic kidney disease with heart failure and stage 1 through stage 4 chronic kidney disease, or unspecified chronic kidney disease; I50.9 Heart failure, unspecified; N18.9 Chronic kidney disease, unspecified; J44.9 Chronic obstructive pulmonary disease, unspecified; Z86.39 Personal history of other endocrine, nutritional and metabolic disease; Z87.440 Personal history of urinary (tract) infections; Z90.710 Acquired absence of both cervix and uterus; Z88.0 Allergy status to penicillin; Z88.1 Allergy status to other antibiotic agents; Z88.6 Allergy status to analgesic agent; Z88.8 Allergy status to other drugs, medicaments and biological substances; Z79.899 Other long term (current) drug therapy
CPT/HCPCS: 81001; 93005

== ENCOUNTER 2019-06-01 19:42 | Emergency (ER) | payer MEDICARE, OTHER ==
[~2019-06-01] VITALS: Ht 154.9 cm; Wt 78.9 kg
[2019-06-01 20:32] LABS: Basophils # (auto) 0 uL; Monocytes # (auto) 0.5 uL; Neutrophils # (auto) 3.7 uL
[2019-06-01 20:34] LABS: Basophils % (auto) 0.5 % (0.0-2.0); Eosinophils # (auto) 0.1 uL; Eosinophils % (auto) 2.3 % (0.0-7.0); Hematocrit 33.2 % (36.0-46.0); Hemoglobin 10.6 g/dL (12.2-16.2); Lymphocytes % (auto) 31.3 % (10.0-50.0); Mean Corpuscular Hemoglobin 26.4 pg (28.0-32.0); Mean Corpuscular Hgb Conc. 31.9 g/dL (32.0-36.0); Mean Corpuscular Volume 82.8 fL (80.0-100.0); Neutrophils % (auto) 57.9 % (37.0-80.0); Platelet Count (auto) 327 10^3/uL (140-450); Red Cell Distribution Width 18.2 % (11.8-14.3); White Blood Cell 6.5 10^3/uL (4.4-10.8)
[2019-06-01 20:46] LABS: Albumin 3.4 g/dL (3.4-5.0); Calcium 8.9 mg/dL (8.5-10.1); Potassium 4.6 mmol/L (3.5-5.1)
[2019-06-01 20:49] LABS: BUN/Creatinine Ratio 14.4; Bilirubin, Total 0.3 mg/dL (0.2-1.0); Total Protein 7.3 g/dL (6.4-8.2)
[2019-06-01 21:42] LABS: Urine Bacteria NONE SEEN /hpf (None Seen); Urine Blood TRACE /uL (Negative); Urine Specific Gravity 1.009 (1.001-1.035); Urine WBC 643 /hpf (0 - 5); Urine WBC Clumps PRESENT /hpf (None Seen)
[2019-06-02] MEDS ORDERED: LEVOFLOXACIN 500 MG TAB PO ONE (07:30)
[2019-06-02] MEDS ORDERED: ONDANSETRON ODT 4 MG TAB PO ONE (10:30)
[2019-06-02 12:36] VITALS: BP 111/41
== END 2019-06-02 13:30 | disposition home or self-care (01) ==
LOC: ER 19:42
DX: N39.0 Urinary tract infection, site not specified (principal); R11.0 Nausea; E78.5 Hyperlipidemia, unspecified; I13.0 Hypertensive heart and chronic kidney disease with heart failure and stage 1 through stage 4 chronic kidney disease, or unspecified chronic kidney disease; N18.9 Chronic kidney disease, unspecified; I50.9 Heart failure, unspecified; I48.91 Unspecified atrial fibrillation; E07.9 Disorder of thyroid, unspecified; J44.9 Chronic obstructive pulmonary disease, unspecified; Z88.6 Allergy status to analgesic agent; Z88.5 Allergy status to narcotic agent; Z88.8 Allergy status to other drugs, medicaments and biological substances; Z88.0 Allergy status to penicillin; Z79.899 Other long term (current) drug therapy; Z90.49 Acquired absence of other specified parts of digestive tract; Z90.710 Acquired absence of both cervix and uterus
CPT/HCPCS: 36415; 74176; 80053; 81001; 85025; 99284; Q0162

== ENCOUNTER 2020-01-19 15:05 | Inpatient (IN) | payer MEDICARE, OTHER ==
[~2020-01-19] VITALS: Ht 154.9 cm; Wt 76.7 kg
[~2020-01-19 15:05] MED LIST changes: -CAR3125T OR; -FURO20TA PO; -GABA100C9 PO; +LACT10SO70 PO; +LEVO-28 PO; +ONDA-144 PO; -ONDA4TAB5 PO
[2020-01-19] MEDS ORDERED: SODIUM CHLORIDE 0.9% 1,000 ML IV ONE (15:39)
[2020-01-19 16:20] LABS: Basophils # (auto) 0 uL; Eosinophils # (auto) 0.1 uL; Hematocrit 32.8 % (36.0-46.0); Mean Corpuscular Hemoglobin 26.1 pg (28.0-32.0); Monocytes # (auto) 0.5 uL
[2020-01-19 16:22] LABS: Basophils % (auto) 0.6 % (0.0-2.0); Eosinophils % (auto) 1.4 % (0.0-7.0); Hemoglobin 10.5 g/dL (12.2-16.2); Lymphocytes # (auto) 2.1 uL; Lymphocytes % (auto) 31.8 % (10.0-50.0); Mean Corpuscular Hgb Conc. 31.9 g/dL (32.0-36.0); Mean Corpuscular Volume 81.7 fL (80.0-100.0); Neutrophils # (auto) 3.9 uL; Neutrophils % (auto) 59.2 % (37.0-80.0); Nucleated Red Blood Cells % 0.1 %; Platelet Count (auto) 302 10^3/uL (140-450); Red Blood Cells 4.01 10^6/uL (4.0-5.20); Red Cell Distribution Width 18.3 % (11.8-14.3); White Blood Cell 6.6 10^3/uL (4.4-10.8)
[2020-01-19 16:31] LABS: Albumin 3.5 g/dL (3.4-5.0); Calcium 8.8 mg/dL (8.5-10.1); Magnesium 2.4 mg/dL (1.6-2.6); Potassium 4.5 mmol/L (3.5-5.1)
[2020-01-19 16:32] LABS: INR 1.06 (0.9-1.15); Partial Thromboplastin Time 22.3 sec (23.64-32.05)
[2020-01-19 16:35] LABS: BUN/Creatinine Ratio 10.2; Bilirubin, Total 0.4 mg/dL (0.2-1.0); Total Protein 7.2 g/dL (6.4-8.2)
[2020-01-19] MEDS ORDERED: ONDANSETRON HCL 4 MG/2 ML VIAL IV ONE (21:45)
[2020-01-19 21:58] LABS: Urine Bacteria NONE SEEN /hpf (None Seen); Urine Blood Negative /uL (Negative); Urine Specific Gravity 1.006 (1.001-1.035); Urine WBC 1 /hpf (0 - 5)
[2020-01-20] MEDS: SODIUM CHLORIDE 0.9% 1,000 ML IV SCH ×2 (00:39→14:12)
[2020-01-20] MEDS: levoFLOXacin 500MG 100 ML IV SCH (01:33)
[2020-01-20] MEDS ORDERED: PROMETHAZINE HCL 25 MG/ML 1ML IV ONE (03:30)
[2020-01-20] MEDS: metroNIDAZOLE 500MG/100ML 100 ML IV SCH ×3 (05:17→17:27)
[2020-01-20] MEDS: traMADol HCL 50 MG TAB PO PRN ×2 (05:30→20:31)
[2020-01-20] MEDS: CARBIDOPA W LEVODOPA 25/100mg TABLET PO SCH ×3 (06:12→21:19)
[2020-01-20] MEDS: LEVOTHYROXINE SODIUM 25 MCG TAB PO SCH (07:20)
[2020-01-20] MEDS ORDERED: PANTOPRAZOLE 40 MG/10 ML VIAL INJ IV SCH (10:00)
[2020-01-20] MEDS ORDERED: APIXABAN 2.5 MG TAB PO SCH (10:00)
[2020-01-20] MEDS: GABAPENTIN 300 MG CAP PO SCH ×2 (10:19→21:19)
[2020-01-20] MEDS: RANOLAZINE ER 500 MG TAB PO SCH ×2 (10:19→21:20)
[2020-01-20] MEDS: AMIODARONE HCL 200 MG TAB PO SCH (10:19)
[2020-01-20 10:45] VITALS: BP 126/50
[2020-01-20 13:00] VITALS: BP 121/53
[2020-01-20 17:00] VITALS: BP 106/41
[2020-01-20] MEDS: PANTOPRAZOLE 40 MG/10 ML VIAL INJ IV SCH (21:19)
[2020-01-20 22:00] VITALS: BP 140/58
[2020-01-20] MEDS: ONDANSETRON HCL 4 MG/2 ML VIAL IV PRN (22:18)
[2020-01-20] MEDS: SIMETHICONE 80 MG CHEWABLE TABLET PO PRN (22:49)
[2020-01-20] MEDS: DOCUSATE SOD 100 MG CAP PO SCH (22:49)
[2020-01-20] MEDS: SENNA 8.6 MG TAB PO SCH (22:49)
[2020-01-21] MEDS: levoFLOXacin 500MG 100 ML IV SCH (00:16)
[2020-01-21] MEDS: metroNIDAZOLE 500MG/100ML 100 ML IV SCH ×3 (01:31→17:20)
[2020-01-21 05:00] VITALS: BP 90/60
[2020-01-21] MEDS: CARBIDOPA W LEVODOPA 25/100mg TABLET PO SCH ×3 (05:22→21:00)
[2020-01-21] MEDS: LEVOTHYROXINE SODIUM 25 MCG TAB PO SCH (06:41)
[2020-01-21 07:17] LABS: Basophils # (auto) 0 uL; Eosinophils # (auto) 0.1 uL; Hemoglobin 10.3 g/dL (12.2-16.2); Monocytes # (auto) 0.5 uL; White Blood Cell 6.1 10^3/uL (4.4-10.8)
[2020-01-21 07:20] LABS: Basophils % (auto) 0.3 % (0.0-2.0); Eosinophils % (auto) 2.2 % (0.0-7.0); Hematocrit 32.1 % (36.0-46.0); Lymphocytes % (auto) 33.1 % (10.0-50.0); Mean Corpuscular Hemoglobin 26.4 pg (28.0-32.0); Mean Corpuscular Hgb Conc. 32.1 g/dL (32.0-36.0); Mean Corpuscular Volume 82.3 fL (80.0-100.0); Neutrophils # (auto) 3.4 uL; Neutrophils % (auto) 56.4 % (37.0-80.0); Platelet Count (auto) 256 10^3/uL (140-450); Red Blood Cells 3.91 10^6/uL (4.0-5.20); Red Cell Distribution Width 17.9 % (11.8-14.3)
[2020-01-21 07:39] LABS: BUN/Creatinine Ratio 8.1; Calcium 8.7 mg/dL (8.5-10.1); Potassium 3.9 mmol/L (3.5-5.1)
[2020-01-21 08:42] VITALS: BP 118/38
[2020-01-21] MEDS: DOCUSATE SOD 100 MG CAP PO SCH (09:56)
[2020-01-21] MEDS: RANOLAZINE ER 500 MG TAB PO SCH ×2 (09:56→21:00)
[2020-01-21] MEDS: AMIODARONE HCL 200 MG TAB PO SCH (09:57)
[2020-01-21] MEDS: GABAPENTIN 300 MG CAP PO SCH ×2 (09:57→21:00)
[2020-01-21] MEDS: PANTOPRAZOLE 40 MG/10 ML VIAL INJ IV SCH ×2 (09:58→20:59)
[2020-01-21] MEDS ORDERED: LACTULOSE 20Gm/30ML SOLN PO PRN ×2 (10:00→17:30)
[2020-01-21 12:22] VITALS: BP 132/51
[2020-01-21] MEDS: SUCRALFATE 1 GM/10 ML ORAL SUSP PO SCH ×3 (12:45→21:00)
[2020-01-21] MEDS ORDERED: LACTULOSE 20Gm/30ML SOLN PO ONE (15:00)
[2020-01-21 16:55] VITALS: BP 117/48
[2020-01-21] MEDS ORDERED: LACTULOSE 20Gm/30ML SOLN PO SCH (18:00)
[2020-01-21 21:00] VITALS: BP 126/43
[2020-01-21] MEDS: SENNA 8.6 MG TAB PO SCH (21:00)
[2020-01-21] MEDS ORDERED: ALPRAZolam 0.5 MG TAB PO ONE (22:30)
[2020-01-22] VITALS (7 sets, daily range): BP systolic 89–129; BP diastolic 39–63
[2020-01-22] MEDS: levoFLOXacin 500MG 100 ML IV SCH (00:20)
[2020-01-22] MEDS: metroNIDAZOLE 500MG/100ML 100 ML IV SCH ×3 (02:00→17:45)
[2020-01-22] MEDS: CARBIDOPA W LEVODOPA 25/100mg TABLET PO SCH ×3 (05:12→21:38)
[2020-01-22] MEDS: SUCRALFATE 1 GM/10 ML ORAL SUSP PO SCH ×4 (06:22→21:38)
[2020-01-22] MEDS: LEVOTHYROXINE SODIUM 25 MCG TAB PO SCH (06:23)
[2020-01-22] MEDS: PANTOPRAZOLE 40 MG/10 ML VIAL INJ IV SCH ×2 (09:49→21:38)
[2020-01-22] MEDS: GABAPENTIN 300 MG CAP PO SCH ×2 (09:50→21:39)
[2020-01-22] MEDS: DOCUSATE SOD 100 MG CAP PO SCH (09:51)
[2020-01-22] MEDS: AMIODARONE HCL 200 MG TAB PO SCH (09:51)
[2020-01-22] MEDS: RANOLAZINE ER 500 MG TAB PO SCH ×2 (09:57→21:39)
[2020-01-22] MEDS: traMADol HCL 50 MG TAB PO PRN (09:57)
[2020-01-22] MEDS: SENNA 8.6 MG TAB PO SCH (21:40)
[2020-01-22] MEDS: ALPRAZolam 0.5 MG TAB PO PRN (23:08)
[2020-01-23] MEDS: levoFLOXacin 500MG 100 ML IV SCH (00:55)
[2020-01-23] MEDS: metroNIDAZOLE 500MG/100ML 100 ML IV SCH ×3 (02:17→17:28)
[2020-01-23 05:00] VITALS: BP 113/50
[2020-01-23] MEDS: CARBIDOPA W LEVODOPA 25/100mg TABLET PO SCH ×3 (06:00→21:57)
[2020-01-23] MEDS: SUCRALFATE 1 GM/10 ML ORAL SUSP PO SCH ×4 (06:27→21:56)
[2020-01-23] MEDS: LEVOTHYROXINE SODIUM 25 MCG TAB PO SCH (06:28)
[2020-01-23] MEDS ORDERED: LIDOCAINE VISCOUS 2% 15ML UD ONE (08:19)
[2020-01-23] MEDS ORDERED: diphenhdrAMINE HCL 50 MG/1 ML VL ONE (08:19)
[2020-01-23] MEDS ORDERED: SODIUM CHLORIDE LOCK 10 ML ONE (08:19)
[2020-01-23 09:00] VITALS: BP 104/44
[2020-01-23] MEDS: DOCUSATE SOD 100 MG CAP PO SCH (10:00)
[2020-01-23] MEDS: GABAPENTIN 300 MG CAP PO SCH ×2 (10:10→21:57)
[2020-01-23] MEDS: RANOLAZINE ER 500 MG TAB PO SCH ×2 (10:11→21:57)
[2020-01-23] MEDS: AMIODARONE HCL 200 MG TAB PO SCH (10:11)
[2020-01-23] MEDS: PANTOPRAZOLE 40 MG/10 ML VIAL INJ IV SCH (10:11)
[2020-01-23 13:00] VITALS: BP 132/56
[2020-01-23] MEDS: fentaNYL CITRATE 100 MCG/2 ML VL ONE ×2 (13:34→13:37)
[2020-01-23] MEDS: MIDAZOLAM HCL 5 MG/ML-1ML VIAL ONE ×2 (13:34→13:37)
[2020-01-23] MEDS ORDERED: PANTOPRAZOLE 40 MG/10 ML VIAL INJ IV ONE (14:00)
[2020-01-23 16:48] VITALS: BP 118/54
[2020-01-23] MEDS: SENNA 8.6 MG TAB PO SCH (21:56)
[2020-01-23] MEDS: ALPRAZolam 0.5 MG TAB PO PRN (21:57)
[2020-01-23 22:00] VITALS: BP 130/57
[2020-01-24] MEDS: levoFLOXacin 500MG 100 ML IV SCH (00:40)
[2020-01-24] MEDS: metroNIDAZOLE 500MG/100ML 100 ML IV SCH ×3 (01:51→17:13)
[2020-01-24 05:00] VITALS: BP 116/69
[2020-01-24] MEDS: CARBIDOPA W LEVODOPA 25/100mg TABLET PO SCH ×3 (05:19→21:36)
[2020-01-24] MEDS: traMADol HCL 50 MG TAB PO PRN (05:21)
[2020-01-24] MEDS: LEVOTHYROXINE SODIUM 25 MCG TAB PO SCH (06:36)
[2020-01-24] MEDS: SUCRALFATE 1 GM/10 ML ORAL SUSP PO SCH ×4 (06:36→21:35)
[2020-01-24 09:00] VITALS: BP 115/48
[2020-01-24] MEDS: PANTOPRAZOLE 40 MG/10 ML VIAL INJ IV SCH (10:05)
[2020-01-24] MEDS: GABAPENTIN 300 MG CAP PO SCH ×2 (10:06→21:35)
[2020-01-24] MEDS: DOCUSATE SOD 100 MG CAP PO SCH (10:06)
[2020-01-24] MEDS: RANOLAZINE ER 500 MG TAB PO SCH ×2 (10:06→21:35)
[2020-01-24] MEDS: AMIODARONE HCL 200 MG TAB PO SCH (10:07)
[2020-01-24 13:00] VITALS: BP 135/60
[2020-01-24 16:47] VITALS: BP 111/60
[2020-01-24] MEDS: SENNA 8.6 MG TAB PO SCH (21:35)
[2020-01-24] MEDS: ALPRAZolam 0.5 MG TAB PO PRN (21:36)
[2020-01-24 22:00] VITALS: BP 110/53
[2020-01-25] MEDS: levoFLOXacin 500MG 100 ML IV SCH (00:55)
[2020-01-25] MEDS: metroNIDAZOLE 500MG/100ML 100 ML IV SCH ×2 (01:37→09:35)
[2020-01-25 05:00] VITALS: BP 115/39
[2020-01-25] MEDS: CARBIDOPA W LEVODOPA 25/100mg TABLET PO SCH ×2 (05:38→14:25)
[2020-01-25] MEDS: traMADol HCL 50 MG TAB PO PRN (05:42)
[2020-01-25] MEDS: SIMETHICONE 80 MG CHEWABLE TABLET PO PRN (05:42)
[2020-01-25] MEDS: ONDANSETRON HCL 4 MG/2 ML VIAL IV PRN (05:42)
[2020-01-25] MEDS: LEVOTHYROXINE SODIUM 25 MCG TAB PO SCH (06:30)
[2020-01-25] MEDS: SUCRALFATE 1 GM/10 ML ORAL SUSP PO SCH ×2 (06:30→11:32)
[2020-01-25 08:47] VITALS: BP 134/47
[2020-01-25] MEDS: GABAPENTIN 300 MG CAP PO SCH (09:36)
[2020-01-25] MEDS: RANOLAZINE ER 500 MG TAB PO SCH (09:36)
[2020-01-25] MEDS: PANTOPRAZOLE 40 MG/10 ML VIAL INJ IV SCH (09:38)
[2020-01-25] MEDS: AMIODARONE HCL 200 MG TAB PO SCH (09:38)
[2020-01-25] MEDS: DOCUSATE SOD 100 MG CAP PO SCH (09:38)
[2020-01-25 13:00] VITALS: BP 141/46
[2020-01-25 15:16] VITALS: BP 141/46
[2020-01-25 16:47] VITALS: BP 133/53
== END 2020-01-25 16:30 | disposition home health service (06) | DRG 392 ==
LOC: ER 15:05 → OVERFLOW 15:06 → EAST 01-20 10:28
PROVIDERS: ADMIT Nurse Practitioner; ATTEND Internal Medicine Nephrology
PROC: 0DB68ZX Excision of Stomach, Via Natural or Artificial Opening Endoscopic, Diagnostic (ICD-10-PCS; principal; 2020-01-23 13:30)
DX: K57.32 Diverticulitis of large intestine without perforation or abscess without bleeding (principal); I13.0 Hypertensive heart and chronic kidney disease with heart failure and stage 1 through stage 4 chronic kidney disease, or unspecified chronic kidney disease; I48.20 Chronic atrial fibrillation, unspecified; N39.0 Urinary tract infection, site not specified; K29.70 Gastritis, unspecified, without bleeding; G20 Parkinson's disease; N18.3 Chronic kidney disease, stage 3 (moderate); E78.5 Hyperlipidemia, unspecified; F41.9 Anxiety disorder, unspecified; Z96.641 Presence of right artificial hip joint; K59.00 Constipation, unspecified; I50.9 Heart failure, unspecified; J44.9 Chronic obstructive pulmonary disease, unspecified; Z79.01 Long term (current) use of anticoagulants; Z82.5 Family history of asthma and other chronic lower respiratory diseases; Z90.710 Acquired absence of both cervix and uterus; Z90.49 Acquired absence of other specified parts of digestive tract; Z83.3 Family history of diabetes mellitus; Z88.5 Allergy status to narcotic agent; Z88.0 Allergy status to penicillin; Z88.8 Allergy status to other drugs, medicaments and biological substances; Z88.1 Allergy status to other antibiotic agents
CPT/HCPCS: 36415; 43239; 51702; 71045; 74176; 80048; 80053; 81001; 82542; 82962; 83605; 83735; 84443; 84484; 85025; 85610; 85730; 86850; 86900; 86901; 87040; 87086; 87804; 93005; 96374; 96375; C9113; G0378; J1956; J2250; J2405; J3490

== ENCOUNTER 2020-03-15 12:03 | Inpatient (IN) | payer MEDICARE, OTHER ==
[~2020-03-15] VITALS: Ht 154.9 cm; Wt 83.1 kg
[~2020-03-15 12:03] MED LIST changes: -CELE100C82 PO; -LEVO-28 PO
[2020-03-15] MEDS ORDERED: SODIUM CHLORIDE 0.9% 500 ML IVB ONE (12:16)
[2020-03-15] MEDS ORDERED: ONDANSETRON HCL 4 MG/2 ML VIAL IV ONE (12:30)
[2020-03-15 13:26] LABS: Basophils # (auto) 0.1 10 ^3/uL (0-0.2); Eosinophils # (auto) 0.1 10 ^3/uL (0-0.8); Monocytes # (auto) 0.6 10 ^3/uL (0-1.3); Red Cell Distribution Width 19.7 % (11.8-14.3); White Blood Cell 9.4 10^3/uL (4.4-10.8)
[2020-03-15 13:27] LABS: Basophils % (auto) 0.7 % (0.0-2.0); Eosinophils % (auto) 1.6 % (0.0-7.0); Hematocrit 31.7 % (36.0-46.0); Hemoglobin 10.4 g/dL (12.2-16.2); Lymphocytes # (auto) 1.7 10 ^3/uL (0.4-5.4); Lymphocytes % (auto) 18.5 % (10.0-50.0); Mean Corpuscular Hgb Conc. 32.6 g/dL (32.0-36.0); Mean Corpuscular Volume 79.7 fL (80.0-100.0); Monocytes % (auto) 6.3 % (0.0-12.0); Neutrophils # (auto) 6.8 10 ^3/uL (1.6-8.6); Neutrophils % (auto) 72.9 % (37.0-80.0); Platelet Count (auto) 247 10^3/uL (140-450); Red Blood Cells 3.98 10^6/uL (4.0-5.20)
[2020-03-15 13:52] LABS: Albumin 3.5 g/dL (3.4-5.0); BUN/Creatinine Ratio 9.9; Calcium 8.6 mg/dL (8.5-10.1)
[2020-03-15 13:55] LABS: Bilirubin, Total 0.3 mg/dL (0.2-1.0); Total Protein 7.2 g/dL (6.4-8.2)
[2020-03-15 14:15] LABS: Urine Bacteria NONE SEEN /hpf (None Seen); Urine Blood Negative /uL (Negative); Urine Specific Gravity 1.003 (1.001-1.035); Urine WBC <1 /hpf (0 - 5)
[2020-03-15] MEDS: SODIUM CHLORIDE 0.9% 1,000 ML IV SCH (14:57)
[2020-03-15] MEDS ORDERED: MORPHINE SULF INJ 2 MG/ML SYRINGE 1ML IV PRN ×3 (15:00→15:15)
[2020-03-15] MEDS ORDERED: DEXTROSE (50%) 50ML SYRG IV PRN (15:00)
[2020-03-15] MEDS ORDERED: NITROGLYCERIN 0.4 MG SL TAB SL PRN ×2 (15:00)
[2020-03-15] MEDS ORDERED: ALUM & MAG HYDROX-SIMETH LIQ(MAALOX) 30 ML PO PRN (15:00)
[2020-03-15] MEDS ORDERED: metroNIDAZOLE 500MG/100ML 100 ML IV ONE (15:15)
[2020-03-15] MEDS ORDERED: CIPROFLOXACIN 400MG/200ML 200 ML IV ONE (15:15)
[2020-03-15] MEDS ORDERED: CARBIDOPA W LEVODOPA CR 25/100mg TABLET PO ONE (15:30)
[2020-03-15] MEDS ORDERED: LEVOTHYROXINE SODIUM 25 MCG TAB PO ONE (15:30)
[2020-03-15] MEDS: LORazepam 0.5 MG TAB PO PRN ×2 (16:26→22:43)
[2020-03-15] MEDS: InsuLIN REG 1unit/0.01ml Soln (100units/ml) SC SCH (17:00)
[2020-03-15] MEDS: ACCU-CHEK COMFORT CURVE STRIP VI SCH ×2 (17:18→21:19)
[2020-03-15] MEDS: ONDANSETRON HCL 4 MG/2 ML VIAL IV PRN (17:20)
[2020-03-15 17:53] VITALS: BP 152/72
--- NOTE | 2020-03-15 17:53 | NUR ---
PATIENT ARRIVED ON UNIT. ORIENTED TO MARY COW[facility]. PATIENT ALERT AND ORIENTED X4. PATIENT ON [employer] MARKETING EXECUTIVE #32. PATIENT DENIES ANY PAIN AT THIS TIME. PATIENT HAS IV TO RIGHT UPPER CHEST PATENT RUNNING FLUIDS AT THIS TIME PER M.D. ORDERS. PATIENT UPDATED ON POC. ALL QUESTIONS ANSWERED. BED IN LOWEST LOCKED POSITION WITH CALL LIGHT WITHIN REACH.
[2020-03-15] MEDS ORDERED: cloNIDine HCL 0.1 MG TAB PO PRN (18:30)
[2020-03-15] MEDS ORDERED: cloNIDine HCL 0.1 MG TAB PO ONE (18:30)
[2020-03-15] MEDS ORDERED: METOPROLOL TARTRATE 1MG/1ML-5ML VIAL IV PRN (18:30)
--- NOTE | 2020-03-15 19:50 | NUR ---
ASSUMED CARE, PT. AWAKE, NO C/O PAIN, NOT IN DISTRESS.
[2020-03-15] MEDS: RANOLAZINE ER 500 MG TAB PO SCH (21:18)
[2020-03-15] MEDS: GABAPENTIN 300 MG CAP PO SCH (21:18)
[2020-03-15] MEDS: metroNIDAZOLE 500MG/100ML 100 ML IV SCH (21:18)
[2020-03-15] MEDS: APIXABAN 2.5 MG TAB PO SCH (21:18)
[2020-03-15] MEDS: FAMOTIDINE 20 MG TAB PO SCH (21:18)
[2020-03-15] MEDS: CARBIDOPA W LEVODOPA CR 25/100mg TABLET PO SCH (21:18)
[2020-03-15 21:52] VITALS: BP 119/72
[2020-03-15] MEDS ORDERED: RANOLAZINE ER 500 MG TAB PO SCH (22:00)
[2020-03-15] MEDS ORDERED: InsuLIN REG 1unit/0.01ml Soln (100units/ml) SC SCH (22:00)
[2020-03-16] MEDS: ONDANSETRON HCL 4 MG/2 ML VIAL IV PRN ×3 (01:54→14:23)
--- NOTE | 2020-03-16 02:00 | NUR ---
PAGED HOSPITALIST RE: PT. REQUESTING HER XANAX MEDICATION, WAITING TO CALL BACK.
--- NOTE | 2020-03-16 02:25 | NUR ---
HOSPITALIST CALLED BACK, ORDERED RESTORIL INSTEAD OF XANAX.
[2020-03-16] MEDS ORDERED: TEMAZEPAM 15 MG CAP PO ONE (02:45)
[2020-03-16] MEDS: SODIUM CHLORIDE 0.9% 1,000 ML IV SCH ×2 (04:17→09:21)
[2020-03-16 04:45] VITALS: BP 93/65
[2020-03-16] MEDS: metroNIDAZOLE 500MG/100ML 100 ML IV SCH ×4 (05:49→23:00)
[2020-03-16] MEDS: CARBIDOPA W LEVODOPA CR 25/100mg TABLET PO SCH (05:49)
[2020-03-16] MEDS: LEVOTHYROXINE SODIUM 25 MCG TAB PO SCH (06:03)
[2020-03-16] MEDS: InsuLIN REG 1unit/0.01ml Soln (100units/ml) SC SCH ×2 (06:03→11:30)
[2020-03-16] MEDS: ACCU-CHEK COMFORT CURVE STRIP VI SCH ×2 (06:04→11:30)
--- NOTE | 2020-03-16 07:15 | NUR ---
OPENING SHIFT NOTE Assumed care, patient in bed AOx4. No s/s of distress noted. Patient complains of nausea. Will medicate per MD orders. Patient updated on POC and to call for assistance as needed, patient verbalized understanding. Melgar catheter patent, draining clear yellow urine, secured below waistline. Bed in low position, locked, call light win in reach, bed alarm on, side rails x2 up. Will continue to monitor patient.
[2020-03-16 09:00] VITALS: BP 132/72
[2020-03-16] MEDS: AMIODARONE HCL 200 MG TAB PO SCH (09:12)
[2020-03-16] MEDS: RANOLAZINE ER 500 MG TAB PO SCH ×2 (09:13→21:43)
[2020-03-16] MEDS: HYDROcodone-ACET 5/325MG TAB PO PRN ×2 (09:14→23:28)
[2020-03-16] MEDS: DOCUSATE SOD 100 MG CAP PO SCH (09:15)
[2020-03-16] MEDS: GABAPENTIN 300 MG CAP PO SCH ×2 (09:15→21:43)
[2020-03-16] MEDS: MULTIPLE VITAMIN TAB PO SCH (09:15)
[2020-03-16] MEDS: APIXABAN 2.5 MG TAB PO SCH ×2 (09:15→21:43)
[2020-03-16] MEDS ORDERED: PREG50CA PO (11:48)
[2020-03-16] MEDS ORDERED: DOCU100T15 PO (11:54)
[2020-03-16] MEDS ORDERED: ONDA-143 PO (11:57)
[2020-03-16] MEDS ORDERED: CAR125T PO (12:01)
[2020-03-16] MEDS ORDERED: CELE200C PO (12:03)
[2020-03-16] MEDS ORDERED: CYAN25005 PO (12:16)
[2020-03-16] MEDS ORDERED: FERR-20 PO (12:18)
[2020-03-16] MEDS ORDERED: CARB25TA3 PO (12:24)
[2020-03-16] MEDS ORDERED: NITR-52 PO (12:26)
[2020-03-16] MEDS ORDERED: SULF1SUS10 PO (12:29)
[2020-03-16 13:00] VITALS: BP 126/57
[2020-03-16] MEDS: CARBIDOPA W LEVODOPA 25/100mg TABLET PO SCH ×2 (13:59→21:43)
[2020-03-16] MEDS: CIPROFLOXACIN 400MG/200ML 200 ML IV SCH (15:19)
[2020-03-16 17:00] VITALS: BP 143/80
--- NOTE | 2020-03-16 17:41 | NUR ---
IV removal Redness and swelling noted on right breast 22 G IV. IV DC'd with clean sterile technique, catheter fully intact. Pressure dressing applied to site. Patient tolerated well.
--- NOTE | 2020-03-16 17:43 | NUR ---
IV insertion Left breast 22G IV access obtained, via clean sterile technique after 1 attempt by lost charge card clerk. IV secured properly. No trauma to site. Patient tolerated well.
--- NOTE | 2020-03-16 18:10 | NUR ---
Patient having anxiety attack. Patient currently having anxiety attack, patient states she has used Xanax 1mg BID for years and she hasn't been receiving it for the last couple of days since admission. Hospitalist paged to obtain PRN anxiety medication.
--- NOTE | 2020-03-16 18:27 | NUR ---
New order received for Xanax 1mg PO once. Will implement orders.
[2020-03-16] MEDS ORDERED: ALPRAZolam 0.5 MG TAB PO ONE (18:30)
--- NOTE | 2020-03-16 19:00 | NUR ---
Received report from the Day Shift RN Consuelo. Pt. in bed resting, alert, awake, oriented x 3-4, anxious and Day Shift RN will give her Xanax po. for anxiety -see Emar. Pt. on 3L/NC continuous, mild sob and with HOB up @ 35-45 deg. Angle. Denies pain @ this time. Provided psychological support and stayed with the pt.
--- NOTE | 2020-03-16 19:15 | NUR ---
Pt. given and placed the mask on her face as she requested. Pt. positioned comfortably in bed.
--- NOTE | 2020-03-16 20:00 | NUR ---
Assessment done and completed. Pt. Afib. @ the monitor # 32 @ the 100's. Pt. is calm and quiet now.
[2020-03-16 21:30] VITALS: BP 116/71
[2020-03-16] MEDS: FAMOTIDINE 20 MG TAB PO SCH (21:43)
--- NOTE | 2020-03-16 21:43 | NUR ---
Meds. as scheduled given. Pt. made aware of the use and mechanism of actions of meds. as scheduled.
[2020-03-16 22:00] VITALS: BP 84/47
--- NOTE | 2020-03-16 22:00 | NUR ---
Pt. has been hardstick from the other shift. Will try to start PIV access and if access is hard, will call [facility] to get order for Midline of Piccline. Pt. refused to be sticked or refused insertion of Peripheral IV @ this time. Unable to administer Flagyl IV @ this time. Will convince and persuade the pt. to be sticked so that the IV Flagyl which is an antifungus is very important medication to prevent infection.
--- NOTE | 2020-03-16 23:00 | NUR ---
Finally pt. is able to say okay for her PIV to be started so that the IV Flagyl medication and IVF maintenance will be administered. RN Vannesa was able to start PIV @ the Right Upper chest G # 24 and another RN Lidia started IV @ the Left finger of the Left Hand G # 24. Both IV accesses are patent and intact.
--- NOTE | 2020-03-16 23:00 | NUR ---
Flagyl IV 500 mg. given @ this time when there's an IV access available. IV Flagyl attached/connected to the Right Upper chest G # 24. Pt. denies pain @ the new IV site. NO s/s of infiltration @ the site.
[2020-03-16] MEDS: ALPRAZolam 0.5 MG TAB PO SCH (23:04)
--- NOTE | 2020-03-16 23:28 | NUR ---
Pt. given [facility] 1 tab. po. for severe abdominal pain about 10/10 scale. Pt. verbalized it as aching and hurting. Provided pt. psychological support and stayed with the pt.
--- NOTE | 2020-03-17 | NUR ---
Pt. still Ronda. @ the tele # 32 @ the 80's.
--- NOTE | 2020-03-17 00:28 | NUR ---
Pt. pain level is about 2/10 scale @ this time. Pt. looks comfortable and no s/s of anxiety or no s/s of agitation and moaning sounds. Pt. still with mild facial grimacing about 2/10 pain scale, tolerable @ this time. Keep pt. safe and bowling pin refinisher bed.
--- NOTE | 2020-03-17 02:00 | NUR ---
Pt. calm and sleeping @ this time. Maintained a safe and quiet environment free from noise. HOB Up @ 35-45 deg. Angle. Call-light within pt.'s reach. Still Afib. @ the 70's to 80's @ the Tele # 32. No s/s of pain or discomfort @ this time.
--- NOTE | 2020-03-17 04:00 | NUR ---
Pt. sleeping undisturbed. Kept. warm and comfortable. Turned/repositioned with the help of nsg. staff.
[2020-03-17 05:41] VITALS: BP 111/76
[2020-03-17] MEDS: metroNIDAZOLE 500MG/100ML 100 ML IV SCH ×3 (06:20→23:30)
[2020-03-17] MEDS: CARBIDOPA W LEVODOPA 25/100mg TABLET PO SCH ×3 (06:21→22:12)
[2020-03-17] MEDS: LEVOTHYROXINE SODIUM 25 MCG TAB PO SCH (06:22)
[2020-03-17] MEDS: SODIUM CHLORIDE 0.9% 1,000 ML IV SCH ×2 (06:23→20:17)
[2020-03-17] MEDS: HYDROcodone-ACET 5/325MG TAB PO PRN (06:38)
[2020-03-17 09:00] VITALS: BP 113/56
[2020-03-17] MEDS: DOCUSATE SOD 100 MG CAP PO SCH (09:55)
[2020-03-17] MEDS: MULTIPLE VITAMIN TAB PO SCH (09:55)
[2020-03-17] MEDS: AMIODARONE HCL 200 MG TAB PO SCH (09:56)
[2020-03-17] MEDS: RANOLAZINE ER 500 MG TAB PO SCH ×2 (09:56→22:12)
[2020-03-17] MEDS: GABAPENTIN 300 MG CAP PO SCH ×2 (09:56→22:12)
[2020-03-17] MEDS: APIXABAN 2.5 MG TAB PO SCH ×2 (09:56→22:12)
[2020-03-17] MEDS: CARVEDILOL 12.5 MG TAB PO SCH ×2 (09:57→18:37)
[2020-03-17] MEDS: ALPRAZolam 0.5 MG TAB PO SCH ×2 (09:57→22:13)
--- NOTE | 2020-03-17 10:00 | NUR ---
medication GAVE 1MG/2 TABLETS DIRECTED BY JESSICA OF ATFLORIDALMA, AND NOT 0.5MG/1 TABLET OF ATIVAN, NO WASTE WAS COMMITTED FOR THE MEDICATION GIVEN. FULL DOSE WAS ADMINISTERED AT THE 1000 MEDICATION PASS. CO SIGNED BY ALEXANDRO HERNANDEZ FOR A WASTE OF 0.5MG/ 1 TABLET.
[2020-03-17 13:00] VITALS: BP 91/42
--- NOTE | 2020-03-17 17:12 | NUR ---
complaint of nausea Patient is having c/o nausea will give zofran from [facility], and will continue to monitor.
[2020-03-17] MEDS: ONDANSETRON HCL 4 MG/2 ML VIAL IV PRN ×2 (17:17→22:13)
[2020-03-17] MEDS: CIPROFLOXACIN 400MG/200ML 200 ML IV SCH (17:18)
--- NOTE | 2020-03-17 17:29 | NUR ---
patient compliant of constipation Patient is c/o constipation and has not had a bowel movement in three days. patient agrees to lactulose as need in the e[facility], will continue to monitor.
[2020-03-17 17:43] VITALS: BP 115/66
[2020-03-17] MEDS: LACTULOSE 20Gm/30ML SOLN PO PRN (17:54)
[2020-03-17] MEDS: FERROUS SULFATE 325 MG TAB PO SCH (17:54)
--- NOTE | 2020-03-17 19:25 | NUR ---
Opening Shift Note Assumed care of patient, awake and alert. No S/S of distress/SOB or pain. Instructed on POC and to call for assist PRN, will continue to monitor for changes Q1hr and PRN. PATIENT IN A SINGLE PATIENT ROOM, SHE IS CALM AND RELAXED, BED IS IN THE LOWEST POSITION, WITH SIDE RALES UP X2, AND CALL LIGHT WITHIN REACH.
[2020-03-17 20:20] VITALS: BP 138/69
[2020-03-17 22:00] VITALS: BP 138/69
[2020-03-17] MEDS: FAMOTIDINE 20 MG TAB PO SCH (22:12)
[2020-03-18] MEDS: LACTULOSE 20Gm/30ML SOLN PO PRN (04:30)
[2020-03-18 05:00] VITALS: BP 73/46
[2020-03-18] MEDS: metroNIDAZOLE 500MG/100ML 100 ML IV SCH ×3 (05:29→21:47)
[2020-03-18] MEDS: CARBIDOPA W LEVODOPA 25/100mg TABLET PO SCH ×3 (05:29→21:47)
[2020-03-18] MEDS: LEVOTHYROXINE SODIUM 25 MCG TAB PO SCH (07:01)
--- NOTE | 2020-03-18 07:30 | NUR ---
Opening Shift Note Assumed care of patient, awake and alert. No S/S of distress/SOB or pain. Instructed on POC and to call for assist PRN, will continue to monitor for changes Q1hr and PRN.
[2020-03-18] MEDS: FERROUS SULFATE 325 MG TAB PO SCH ×2 (08:00→17:15)
[2020-03-18] MEDS: CARVEDILOL 12.5 MG TAB PO SCH ×2 (08:00→17:16)
[2020-03-18] MEDS: ONDANSETRON HCL 4 MG/2 ML VIAL IV PRN (08:25)
[2020-03-18 09:00] VITALS: BP 101/69
[2020-03-18] MEDS: RANOLAZINE ER 500 MG TAB PO SCH ×2 (10:20→21:48)
[2020-03-18] MEDS: AMIODARONE HCL 200 MG TAB PO SCH (10:21)
[2020-03-18] MEDS: MULTIPLE VITAMIN TAB PO SCH (10:21)
[2020-03-18] MEDS: DOCUSATE SOD 100 MG CAP PO SCH (10:21)
[2020-03-18] MEDS: GABAPENTIN 300 MG CAP PO SCH ×2 (10:21→21:47)
[2020-03-18] MEDS: ALPRAZolam 0.5 MG TAB PO SCH ×2 (10:22→21:48)
[2020-03-18 13:00] VITALS: BP 125/85
[2020-03-18] MEDS: CIPROFLOXACIN 400MG/200ML 200 ML IV SCH (15:19)
[2020-03-18 17:00] VITALS: BP 122/61
--- NOTE | 2020-03-18 17:30 | NUR ---
Patient incontinent of small stool. Patient cleaned and repositioned. Call light in reach. Will continue to monitor.
[2020-03-18] MEDS: SODIUM CHLORIDE 0.9% 1,000 ML IV SCH ×2 (18:14→21:48)
--- NOTE | 2020-03-18 19:30 | NUR ---
Opening Shift Note Assumed care of patient, awake and alert. No S/S of distress/SOB or pain. Insructed on POC and to callfor assist PRN, will continue to monitor for changes Q1hr and PRN. Fall and safety precautions in place. Call light within reach.
[2020-03-18 21:33] VITALS: BP 92/50
[2020-03-18] MEDS: FAMOTIDINE 20 MG TAB PO SCH (21:47)
--- NOTE | 2020-03-18 22:00 | NUR ---
HYGIENE Patient cleaned of BM. Partial linen change done, patient repositioned in bed for comfort, tolerated well. Will continue to monitor
[2020-03-19] MEDS: ONDANSETRON HCL 4 MG/2 ML VIAL IV PRN ×3 (01:44→22:13)
[2020-03-19 05:00] VITALS: BP 106/73
[2020-03-19] MEDS: CARBIDOPA W LEVODOPA 25/100mg TABLET PO SCH ×3 (05:51→22:12)
[2020-03-19] MEDS: metroNIDAZOLE 500MG/100ML 100 ML IV SCH ×3 (05:51→22:13)
[2020-03-19] MEDS: LEVOTHYROXINE SODIUM 25 MCG TAB PO SCH (05:52)
[2020-03-19 08:28] VITALS: BP 123/68
[2020-03-19] MEDS: GABAPENTIN 300 MG CAP PO SCH ×2 (08:53→22:12)
[2020-03-19] MEDS: ALPRAZolam 0.5 MG TAB PO SCH ×2 (08:54→22:12)
[2020-03-19] MEDS: FERROUS SULFATE 325 MG TAB PO SCH ×2 (08:55→18:00)
[2020-03-19] MEDS: DOCUSATE SOD 100 MG CAP PO SCH (08:55)
[2020-03-19] MEDS: RANOLAZINE ER 500 MG TAB PO SCH ×2 (08:55→22:12)
[2020-03-19] MEDS: MULTIPLE VITAMIN TAB PO SCH (08:55)
[2020-03-19] MEDS: AMIODARONE HCL 200 MG TAB PO SCH (08:55)
[2020-03-19] MEDS: CARVEDILOL 12.5 MG TAB PO SCH ×2 (08:56→18:00)
--- NOTE | 2020-03-19 11:16 | NUR ---
NAUSEA Patient complains of unresolved nausea, will medicate per MD orders.
[2020-03-19] MEDS ORDERED: GOLYTELY 4L KIT PO ONE (12:00)
[2020-03-19] MEDS: SODIUM CHLORIDE 0.9% 1,000 ML IV SCH (12:17)
[2020-03-19] MEDS: CIPROFLOXACIN 400MG/200ML 200 ML IV SCH (16:18)
[2020-03-19 16:58] VITALS: BP 97/59
--- NOTE | 2020-03-19 18:30 | NUR ---
New orders New telephone orders received by Dr. Andree Harp, please see EMAR.
[2020-03-19 21:45] VITALS: BP 117/77
--- NOTE | 2020-03-19 22:00 | NUR ---
HYGIENE Patient cleaned of BM with assist from PROBATION AND PATROL AGENT. Partial linen change done and gown changed. Patient repositioned in bed for comfort, tolerated well. Will continue to monitor
[2020-03-19] MEDS: FAMOTIDINE 20 MG TAB PO SCH (22:12)
--- NOTE | 2020-03-20 00:05 | NUR ---
IV insertion IV access obtained, via clean sterile technique by inserting 22 gauge catheter at right wrist after several attempt. IV secured properly. No trauma to site. Patient tolerated well. IV removal IV DC'd with clean sterile technique, catheter fully intact. Pressure dressing applied to site. Patient tolerated well. NOTE: right breast 24g removed due to infiltration
[2020-03-20] MEDS: SODIUM CHLORIDE 0.9% 1,000 ML IV SCH ×2 (04:30→14:57)
[2020-03-20 05:00] VITALS: BP 96/54
[2020-03-20 05:04] LABS: Basophils # (auto) 0 10 ^3/uL (0-0.2); Eosinophils # (auto) 0.2 10 ^3/uL (0-0.8); Eosinophils % (auto) 2.7 % (0.0-7.0); Monocytes # (auto) 0.6 10 ^3/uL (0-1.3); Nucleated Red Blood Cells % 0.1 %
[2020-03-20 05:07] LABS: Basophils % (auto) 0.7 % (0.0-2.0); Hematocrit 29.6 % (36.0-46.0); Hemoglobin 9.7 g/dL (12.2-16.2); Lymphocytes # (auto) 1.8 10 ^3/uL (0.4-5.4); Lymphocytes % (auto) 29.9 % (10.0-50.0); Mean Corpuscular Hgb Conc. 32.9 g/dL (32.0-36.0); Mean Corpuscular Volume 79.2 fL (80.0-100.0); Monocytes % (auto) 10.5 % (0.0-12.0); Neutrophils # (auto) 3.3 10 ^3/uL (1.6-8.6); Neutrophils % (auto) 56.2 % (37.0-80.0); Platelet Count (auto) 227 10^3/uL (140-450); Red Blood Cells 3.74 10^6/uL (4.0-5.20); Red Cell Distribution Width 19.5 % (11.8-14.3); White Blood Cell 5.9 10^3/uL (4.4-10.8)
[2020-03-20 05:18] LABS: INR 1.18 (0.9-1.15); Partial Thromboplastin Time 25.8 sec (23.64-32.05)
[2020-03-20 05:21] LABS: Potassium 3.6 mmol/L (3.5-5.1)
[2020-03-20 05:24] LABS: Albumin 2.8 g/dL (3.4-5.0); BUN/Creatinine Ratio 6.1; Bilirubin, Total 0.4 mg/dL (0.2-1.0); Total Protein 5.8 g/dL (6.4-8.2)
[2020-03-20] MEDS: metroNIDAZOLE 500MG/100ML 100 ML IV SCH ×3 (05:31→22:22)
[2020-03-20] MEDS: LEVOTHYROXINE SODIUM 25 MCG TAB PO SCH (05:31)
[2020-03-20] MEDS: CARBIDOPA W LEVODOPA 25/100mg TABLET PO SCH ×3 (05:31→22:13)
[2020-03-20] MEDS: ONDANSETRON HCL 4 MG/2 ML VIAL IV PRN ×3 (05:32→22:27)
[2020-03-20] MEDS ORDERED: MAGNESIUM CITRATE SOLUTION 300 ML BTL PO ONE (06:00)
[2020-03-20] MEDS: CARVEDILOL 12.5 MG TAB PO SCH ×2 (08:00→14:41)
[2020-03-20] MEDS: FERROUS SULFATE 325 MG TAB PO SCH ×2 (08:00→14:39)
[2020-03-20 08:03] VITALS: BP 141/75
--- NOTE | 2020-03-20 08:15 | NUR ---
initial assessment complete. 1st tap water enema completed. arpan care and linen change.
[2020-03-20] MEDS ORDERED: NALOXONE HCL 0.4 MG/ML VIAL ONE (09:45)
[2020-03-20] MEDS ORDERED: FLUMAZENIL 0.1 MG/ML INJ 10ML MDV IV ONE (09:46)
[2020-03-20] MEDS ORDERED: diphenhdrAMINE HCL 50 MG/1 ML VL ONE (09:46)
[2020-03-20] MEDS ORDERED: SODIUM CHLORIDE LOCK 10 ML ONE (09:46)
[2020-03-20] MEDS: DOCUSATE SOD 100 MG CAP PO SCH (10:00)
[2020-03-20] MEDS: MULTIPLE VITAMIN TAB PO SCH (10:00)
--- NOTE | 2020-03-20 10:30 | NUR ---
2nd tap water enema completed. Signed consents. To GI lab in bed.
[2020-03-20] MEDS: fentaNYL CITRATE 100 MCG/2 ML VL ONE ×2 (10:33→10:35)
[2020-03-20] MEDS: MIDAZOLAM HCL 5 MG/ML-1ML VIAL ONE ×3 (10:33→10:41)
--- NOTE | 2020-03-20 11:34 | NUR ---
RETURNS TO ROOM 206. AWAKE. DROWSY. SOFT BULB CALL LIGHT PLACED IN HANDS.BLANKETS ADDED FOR WARMTH. C/O GAS.
[2020-03-20 12:30] VITALS: BP 118/74
[2020-03-20] MEDS: RANOLAZINE ER 500 MG TAB PO SCH ×2 (14:39→22:13)
[2020-03-20] MEDS: ALPRAZolam 0.5 MG TAB PO SCH ×2 (14:39→22:12)
[2020-03-20] MEDS: AMIODARONE HCL 200 MG TAB PO SCH (14:40)
[2020-03-20] MEDS: GABAPENTIN 300 MG CAP PO SCH ×2 (14:40→22:13)
[2020-03-20] MEDS: CIPROFLOXACIN 400MG/200ML 200 ML IV SCH (15:00)
[2020-03-20 16:37] VITALS: BP 102/59
--- NOTE | 2020-03-20 18:30 | NUR ---
Remains up on BSC with incontinent watery stools. IV to rt wrist infiltrated. removed cannula intact wrapped with coban.
--- NOTE | 2020-03-20 19:30 | NUR ---
Opening Shift Note Assumed care of patient, awake and alert. No S/S of distress/SOB or pain. Instructed on POC and to call for assist PRN, will continue to monitor for changes Q1hr and PRN. Fall and safety precautions in place. Call light within reach. Signed: 03/21/20 at 0143 by SOFIYA FRANCIS SN <Co-Signature Required> Co-Signed: 03/21/20 at 0143 by Dee Saenz RN RN
[2020-03-20 21:00] VITALS: BP 96/67
[2020-03-20] MEDS: FAMOTIDINE 20 MG TAB PO SCH (22:13)
--- NOTE | 2020-03-20 22:20 | NUR ---
IV insertion IV access obtained, via clean sterile technique by inserting 22 gauge catheter at right wrist after first attempt. IV secured properly. No trauma to site. Patient tolerated well. Pt did not have iv access upon initial assessment. Signed: 03/21/20 at 0145 by SOFIYA FRANCIS SN <Co-Signature Required> Co-Signed: 03/21/20 at 0145 by Dee Saenz RN RN
--- NOTE | 2020-03-21 | NUR ---
NPO Pt informed of NPO status at this time in preparation for scheduled procedure later today. Pt verbalized understanding and agreement. Bedside table cleared of water. Signed: 03/21/20 at 0147 by SOFIYA FRANCIS <Co-Signature Required> Co-Signed: 03/21/20 at 014 by Dee Saenz RN RN
[2020-03-21] MEDS: CIPROFLOXACIN 400MG/200ML 200 ML IV SCH (03:10)
[2020-03-21 04:30] VITALS: BP 91/48
[2020-03-21] MEDS: metroNIDAZOLE 500MG/100ML 100 ML IV SCH (05:29)
[2020-03-21] MEDS: ONDANSETRON HCL 4 MG/2 ML VIAL IV PRN (05:31)
[2020-03-21] MEDS: LEVOTHYROXINE SODIUM 25 MCG TAB PO SCH (05:32)
[2020-03-21] MEDS: CARBIDOPA W LEVODOPA 25/100mg TABLET PO SCH (05:32)
[2020-03-21] MEDS: SODIUM CHLORIDE 0.9% 1,000 ML IV SCH (05:38)
--- NOTE | 2020-03-21 08:00 | NUR ---
assumed care. sleeping. easy to arouse. IV site checked found patent s/s of infiltration.
[2020-03-21] MEDS: FERROUS SULFATE 325 MG TAB PO SCH (08:30)
[2020-03-21] MEDS: CARVEDILOL 12.5 MG TAB PO SCH (08:30)
--- NOTE | 2020-03-21 08:30 | NUR ---
IV pump alarms high pressure. IV tubing flushed. found patent, flushes easily. taping of tubing reinforced. remains NPO accept for meds. discussed planned barium enema study.
[2020-03-21 08:46] VITALS: BP 109/59
--- NOTE | 2020-03-21 09:15 | NUR ---
Rounded with Dr. Franco. Clarified with Dr. Harp Barium Enema study first then DC home in afternoon. Pt reports having been seen by Dietary and educated on 6 very small meals each day and what foods not to eat. Dr. Franco explains medications to take at home.
[2020-03-21] MEDS ORDERED: LIQUID POLIBAR PLUS 105% (BARIUM SULF) 1900ML ONE (09:33)
--- NOTE | 2020-03-21 09:58 | NUR ---
RADIOLOGY CONTACTED TO CONFIRM TEST. REPORTED TO ME PT HAS ALREADY BEEN SEEN BY RADIOLOGY AND CONFIRMED SHE IS READY. PLANNING TO RETURN FOR PT BEFORE NOON. CALL MADE TO SON MARILYN MESSAGE LEFT NOTIFYING DC HOME.
[2020-03-21] MEDS: MULTIPLE VITAMIN TAB PO SCH (10:00)
[2020-03-21] MEDS: ALPRAZolam 0.5 MG TAB PO SCH (10:00)
[2020-03-21] MEDS: DOCUSATE SOD 100 MG CAP PO SCH (10:00)
[2020-03-21] MEDS: RANOLAZINE ER 500 MG TAB PO SCH (10:00)
[2020-03-21] MEDS: AMIODARONE HCL 200 MG TAB PO SCH (10:00)
[2020-03-21] MEDS: GABAPENTIN 300 MG CAP PO SCH (10:00)
--- NOTE | 2020-03-21 10:05 | NUR ---
SPOKE AT LENGTH WITH PT SON. HE HAS DR APPOINTMENT IN [facility] AT 1500. HE WILL PICK HER UP AFTER
--- NOTE | 2020-03-21 12:04 | NUR ---
OFF UNIT FOR TEST IN RADIOLOGY
[2020-03-21 12:33] VITALS: BP 115/56
[2020-03-21 14:24] VITALS: BP 115/56
[2020-03-21 16:30] VITALS: BP 119/69
--- NOTE | 2020-03-21 17:09 | NUR ---
RECEIVED DAILY MEDICATIONS WHEN RETURNED FROM RADIOLOGY. ASSIST WITH DRESSING. PLACED DIAPER IN DISPOSABLE BRIEF FOR TRAVEL HOME. PRESCRIPTIONS CONFIRMED WITH PHARMACY READY TO BE PICKED UP. JEAN REMOVED WITH BALLOON FULLY DEFLATED. IV REMOVED CANNULA INTACT. DSG APPLIED. DC INSTRUCTIONS SIGNED BY CAREGIVER SON WHEN PICKED UP AT [facility].
== END 2020-03-21 17:00 | disposition home or self-care (01) | DRG 391 ==
LOC: ER 12:03 → TELE 12:04 → TELE-CENTR 17:51
PROVIDERS: ADMIT Hospitalist; ATTEND Family Medicine
PROC: 0DBN8ZX Excision of Sigmoid Colon, Via Natural or Artificial Opening Endoscopic, Diagnostic (ICD-10-PCS; principal; 2020-03-20 10:31)
DX: K57.32 Diverticulitis of large intestine without perforation or abscess without bleeding (principal); N17.0 Acute kidney failure with tubular necrosis; E87.1 Hypo-osmolality and hyponatremia; E44.0 Moderate protein-calorie malnutrition; I13.0 Hypertensive heart and chronic kidney disease with heart failure and stage 1 through stage 4 chronic kidney disease, or unspecified chronic kidney disease; N18.3 Chronic kidney disease, stage 3 (moderate); D50.9 Iron deficiency anemia, unspecified; F32.9 Major depressive disorder, single episode, unspecified; E03.9 Hypothyroidism, unspecified; I48.91 Unspecified atrial fibrillation; J44.9 Chronic obstructive pulmonary disease, unspecified; G20 Parkinson's disease; M51.37 Other intervertebral disc degeneration, lumbosacral region; Z96.641 Presence of right artificial hip joint; I50.9 Heart failure, unspecified; G89.29 Other chronic pain; E11.42 Type 2 diabetes mellitus with diabetic polyneuropathy; F41.9 Anxiety disorder, unspecified; E11.21 Type 2 diabetes mellitus with diabetic nephropathy; Z88.6 Allergy status to analgesic agent; Z88.5 Allergy status to narcotic agent; Z88.0 Allergy status to penicillin; Z88.1 Allergy status to other antibiotic agents; Z88.8 Allergy status to other drugs, medicaments and biological substances; Z87.440 Personal history of urinary (tract) infections; Z90.49 Acquired absence of other specified parts of digestive tract; Z90.89 Acquired absence of other organs; Z90.710 Acquired absence of both cervix and uterus; Z79.899 Other long term (current) drug therapy; Z79.01 Long term (current) use of anticoagulants; Z83.3 Family history of diabetes mellitus; Z82.5 Family history of asthma and other chronic lower respiratory diseases; Z81.8 Family history of other mental and behavioral disorders; Z80.0 Family history of malignant neoplasm of digestive organs
CPT/HCPCS: 36415; 51702; 71045; 74176; 74270; 80053; 81001; 82378; 82962; 83690; 85025; 85610; 85730; 87081; 96361; 96365; 96367; 96375; G0378; J2250; J2405; J3490

== ENCOUNTER 2020-05-01 13:38 | Inpatient (IN) | payer MEDICARE, OTHER ==
[~2020-05-01] VITALS: Ht 154.9 cm; Wt 81.4 kg
[~2020-05-01 13:38] MED LIST changes: +CAR125T PO; -CARB25TA2 PO; +CARB25TA3 PO; +CELE200C PO; +CYAN25005 PO; +FERR-20 PO; +NITR-52 PO; +ONDA-143 PO; -ONDA-144 PO; +PREG50CA PO; +SULF1SUS10 PO
[2020-05-01 14:35] LABS: Basophils # (auto) 0 10 ^3/uL (0-0.2); Basophils % (auto) 0.7 % (0.0-2.0); Eosinophils # (auto) 0.1 10 ^3/uL (0-0.8); Eosinophils % (auto) 1.2 % (0.0-7.0); Hematocrit 37.3 % (36.0-46.0); Lymphocytes # (auto) 1.7 10 ^3/uL (0.4-5.4); Lymphocytes % (auto) 29.4 % (10.0-50.0); Mean Corpuscular Hemoglobin 27.4 pg (28.0-32.0); Mean Corpuscular Hgb Conc. 32.3 g/dL (32.0-36.0); Mean Corpuscular Volume 84.8 fL (80.0-100.0); Monocytes # (auto) 0.4 10 ^3/uL (0-1.3); Monocytes % (auto) 7.1 % (0.0-12.0); Neutrophils # (auto) 3.5 10 ^3/uL (1.6-8.6); Neutrophils % (auto) 61.6 % (37.0-80.0); Platelet Count (auto) 217 10^3/uL (140-450); Red Blood Cells 4.39 10^6/uL (4.0-5.20); White Blood Cell 5.7 10^3/uL (4.4-10.8)
[2020-05-01 14:41] LABS: Red Cell Distribution Width 21.9 % (11.8-14.3)
[2020-05-01 14:53] LABS: Albumin 3.5 g/dL (3.4-5.0); Anion Gap 6 (5-15); Blood Urea Nitrogen 13 mg/dL (7-18); Carbon Dioxide 28 mmol/L (21-32); Chloride 104 mmol/L (98-107); Glucose 108 mg/dL (74-106); Potassium 4.6 mmol/L (3.5-5.1); Sodium 138 mmol/L (136-145)
[2020-05-01 14:58] LABS: Alanine Aminotransferase 10 U/L (13-56); Alkaline Phosphatase 75 U/L (45-117); Aspartate Aminotransferase 22 U/L (15-37); BUN/Creatinine Ratio 8.8; Bilirubin, Total 0.2 mg/dL (0.2-1.0); GFR African American 43 mL/min; GFR Non-African American 36 mL/min; Total Protein 7.3 g/dL (6.4-8.2)
[2020-05-01] MEDS ORDERED: MORPHINE SULF INJ 2 MG/ML SYRINGE 1ML IV ONE (15:00)
[2020-05-01] MEDS ORDERED: ONDANSETRON HCL 4 MG/2 ML VIAL IV ONE (15:00)
[2020-05-01 15:39] LABS: Urine Bacteria FEW /hpf (None Seen); Urine Blood Negative /uL (Negative); Urine Specific Gravity 1.006 (1.001-1.035); Urine WBC 119 /hpf (0 - 5)
[2020-05-01] MEDS ORDERED: SODIUM CHLORIDE 0.9% 1,000 ML IV ONE ×2 (16:06→18:45)
[2020-05-01] MEDS ORDERED: metroNIDAZOLE 500MG/100ML 100 ML IV ONE (16:15)
[2020-05-01] MEDS ORDERED: POLYETHYLENE GLYCOL 17 GM PWDR PO ONE (18:45)
[2020-05-01] MEDS ORDERED: FLEET MINERAL OIL ENEMA 133 ML PR ONE (18:45)
[2020-05-01] MEDS ORDERED: MORPHINE SULF INJ 2 MG/ML SYRINGE 1ML IV PRN (18:45)
[2020-05-01] MEDS ORDERED: NITROGLYCERIN 0.4 MG SL TAB SL PRN (18:45)
[2020-05-01] MEDS ORDERED: POLYETHYLENE GLYCOL 17 GM PWDR PO PRN (18:45)
[2020-05-01] MEDS ORDERED: PANT40TA2 PO ×2 (18:58)
[2020-05-01] MEDS ORDERED: SPIR25TA8 PO (18:58)
[2020-05-01] MEDS ORDERED: ROSU20TA14 PO ×2 (18:58)
[2020-05-01] MEDS ORDERED: levoFLOXacin 500MG 100 ML IV ONE (19:00)
[2020-05-01] MEDS: ONDANSETRON HCL 4 MG/2 ML VIAL IV PRN (19:45)
[2020-05-01] MEDS: CARBIDOPA W LEVODOPA 25/100mg TABLET PO SCH (20:10)
[2020-05-01 22:00] VITALS: BP 122/99
[2020-05-01] MEDS: LACTULOSE 20Gm/30ML SOLN PO SCH (22:03)
[2020-05-01] MEDS: GABAPENTIN 300 MG CAP PO SCH (22:04)
[2020-05-01] MEDS: metroNIDAZOLE 500MG/100ML 100 ML IV SCH (22:04)
[2020-05-01] MEDS: APIXABAN 2.5 MG TAB PO SCH (22:04)
[2020-05-01] MEDS: CARVEDILOL 3.125 MG TAB PO SCH (22:10)
[2020-05-01 22:15] VITALS: BP 122/99
[2020-05-01] MEDS ORDERED: PROMETHAZINE HCL 25 MG/ML 1ML ONE (23:33)
[2020-05-01] MEDS ORDERED: TEMAZEPAM 15 MG CAP ONE (23:33)
[2020-05-02] MEDS ORDERED: FLEET ENEMA(ADULT) 135 ML PR ONE (00:51)
[2020-05-02] MEDS: CARBIDOPA W LEVODOPA 25/100mg TABLET PO SCH ×3 (03:16→18:25)
[2020-05-02 05:39] VITALS: BP 106/57
[2020-05-02] MEDS: metroNIDAZOLE 500MG/100ML 100 ML IV SCH ×3 (05:56→22:14)
[2020-05-02 06:12] LABS: Basophils # (auto) 0 10 ^3/uL (0-0.2); Basophils % (auto) 0.6 % (0.0-2.0); Eosinophils # (auto) 0.1 10 ^3/uL (0-0.8); Eosinophils % (auto) 1.4 % (0.0-7.0); Hematocrit 34.7 % (36.0-46.0); Hemoglobin 11.4 g/dL (12.2-16.2); Lymphocytes # (auto) 1.8 10 ^3/uL (0.4-5.4); Lymphocytes % (auto) 30.5 % (10.0-50.0); Mean Corpuscular Hemoglobin 27.6 pg (28.0-32.0); Mean Corpuscular Hgb Conc. 32.8 g/dL (32.0-36.0); Mean Corpuscular Volume 84.1 fL (80.0-100.0); Monocytes # (auto) 0.5 10 ^3/uL (0-1.3); Monocytes % (auto) 7.8 % (0.0-12.0); Neutrophils # (auto) 3.6 10 ^3/uL (1.6-8.6); Neutrophils % (auto) 59.7 % (37.0-80.0); Nucleated Red Blood Cells % 0.1 %; Platelet Count (auto) 183 10^3/uL (140-450); Red Blood Cells 4.13 10^6/uL (4.0-5.20)
[2020-05-02] MEDS: LEVOTHYROXINE SODIUM 25 MCG TAB PO SCH (06:24)
[2020-05-02 06:43] LABS: BUN/Creatinine Ratio 9.2; Calcium 8.1 mg/dL (8.5-10.1)
[2020-05-02] MEDS: CARVEDILOL 3.125 MG TAB PO SCH (08:00)
[2020-05-02 09:00] VITALS: BP 90/51
[2020-05-02] MEDS: LACTULOSE 20Gm/30ML SOLN PO SCH (10:00)
[2020-05-02] MEDS: GABAPENTIN 300 MG CAP PO SCH ×2 (10:00→22:12)
[2020-05-02] MEDS: APIXABAN 2.5 MG TAB PO SCH ×2 (10:00→22:12)
[2020-05-02] MEDS: AMIODARONE HCL 200 MG TAB PO SCH (10:00)
[2020-05-02] MEDS: levoFLOXacin 250MG 50 ML IV SCH (10:23)
[2020-05-02] MEDS ORDERED: LACTULOSE 20Gm/30ML SOLN PO PRN (12:00)
[2020-05-02] MEDS ORDERED: CHOLCAP11 PO ×2 (12:56)
[2020-05-02] MEDS ORDERED: CAR125T PO (12:56)
[2020-05-02] MEDS ORDERED: RANO500T3 PO ×2 (12:56)
[2020-05-02] MEDS ORDERED: SULF1SUS10 PO (12:56)
[2020-05-02] MEDS ORDERED: GABA600T PO ×2 (12:56)
[2020-05-02 13:00] VITALS: BP 128/90
[2020-05-02] MEDS: PANTOPRAZOLE 40 MG TAB PO SCH ×2 (14:22→22:12)
[2020-05-02 17:00] VITALS: BP 97/52
[2020-05-02] MEDS: CARVEDILOL 12.5 MG TAB PO SCH (18:15)
[2020-05-02 22:00] VITALS: BP 134/83
[2020-05-02] MEDS ORDERED: TEMAZEPAM 15 MG CAP PO PRN (23:00)
[2020-05-03] MEDS: ONDANSETRON HCL 4 MG/2 ML VIAL IV PRN ×2 (00:05→13:30)
[2020-05-03] MEDS: CARBIDOPA W LEVODOPA 25/100mg TABLET PO SCH ×3 (03:06→18:00)
[2020-05-03] MEDS: traMADol HCL 50 MG TAB PO PRN (04:04)
[2020-05-03 05:00] VITALS: BP 125/64
[2020-05-03] MEDS: metroNIDAZOLE 500MG/100ML 100 ML IV SCH ×3 (06:43→22:01)
[2020-05-03] MEDS: LEVOTHYROXINE SODIUM 25 MCG TAB PO SCH (06:44)
[2020-05-03 09:00] VITALS: BP 126/69
[2020-05-03] MEDS: GABAPENTIN 300 MG CAP PO SCH ×2 (09:40→22:03)
[2020-05-03] MEDS: AMIODARONE HCL 200 MG TAB PO SCH (09:41)
[2020-05-03] MEDS: APIXABAN 2.5 MG TAB PO SCH ×2 (09:42→22:04)
[2020-05-03] MEDS: PANTOPRAZOLE 40 MG TAB PO SCH ×2 (09:42→22:04)
[2020-05-03] MEDS: CARVEDILOL 12.5 MG TAB PO SCH ×2 (09:42→18:00)
[2020-05-03] MEDS: levoFLOXacin 250MG 50 ML IV SCH (09:43)
[2020-05-03] MEDS ORDERED: traMADol HCL 50 MG TAB PO ONE (11:00)
[2020-05-03] MEDS ORDERED: LORATADINE 10 MG TAB PO ONE (11:45)
[2020-05-03 13:00] VITALS: BP 124/87
[2020-05-03] MEDS: ALPRAZolam 0.5 MG TAB PO SCH ×2 (13:23→22:03)
[2020-05-03 17:00] VITALS: BP 112/46
[2020-05-03] MEDS: SUCRALFATE 1 GM/10 ML ORAL SUSP PO SCH ×2 (17:21→22:05)
[2020-05-03 22:00] VITALS: BP 98/55
[2020-05-04] MEDS: CARBIDOPA W LEVODOPA 25/100mg TABLET PO SCH ×3 (03:09→18:23)
[2020-05-04 05:01] VITALS: BP 97/57
[2020-05-04] MEDS: metroNIDAZOLE 500MG/100ML 100 ML IV SCH ×3 (06:29→22:02)
[2020-05-04] MEDS: SUCRALFATE 1 GM/10 ML ORAL SUSP PO SCH ×4 (06:32→22:03)
[2020-05-04] MEDS: LEVOTHYROXINE SODIUM 25 MCG TAB PO SCH (06:34)
[2020-05-04] MEDS: CARVEDILOL 12.5 MG TAB PO SCH ×2 (08:00→17:11)
[2020-05-04 09:00] VITALS: BP 96/60
[2020-05-04] MEDS: levoFLOXacin 250MG 50 ML IV SCH (09:10)
[2020-05-04] MEDS: GABAPENTIN 300 MG CAP PO SCH ×2 (09:10→22:03)
[2020-05-04] MEDS: AMIODARONE HCL 200 MG TAB PO SCH (09:11)
[2020-05-04] MEDS: PANTOPRAZOLE 40 MG TAB PO SCH ×2 (09:11→22:03)
[2020-05-04] MEDS: LORATADINE 10 MG TAB PO SCH (09:11)
[2020-05-04] MEDS: APIXABAN 2.5 MG TAB PO SCH ×2 (09:11→22:03)
[2020-05-04] MEDS: ALPRAZolam 0.5 MG TAB PO SCH ×2 (09:12→22:03)
[2020-05-04 13:00] VITALS: BP 103/56
[2020-05-04 17:00] VITALS: BP 86/49
[2020-05-04 18:33] VITALS: BP 127/81
[2020-05-04 22:00] VITALS: BP 110/48
[2020-05-04] MEDS: HYOSCYAMINE SULF 0.125 MG ODT TAB PO PRN (22:02)
[2020-05-05] MEDS: CARBIDOPA W LEVODOPA 25/100mg TABLET PO SCH ×3 (02:54→21:15)
[2020-05-05 05:00] VITALS: BP 115/53
[2020-05-05] MEDS: LEVOTHYROXINE SODIUM 25 MCG TAB PO SCH (06:30)
[2020-05-05] MEDS: HYOSCYAMINE SULF 0.125 MG ODT TAB PO PRN ×2 (06:31→23:33)
[2020-05-05] MEDS: SUCRALFATE 1 GM/10 ML ORAL SUSP PO SCH ×4 (06:31→21:17)
[2020-05-05] MEDS: metroNIDAZOLE 500MG/100ML 100 ML IV SCH ×3 (06:31→21:18)
[2020-05-05 09:00] VITALS: BP 100/75
[2020-05-05] MEDS: GABAPENTIN 300 MG CAP PO SCH ×2 (09:45→21:18)
[2020-05-05] MEDS: APIXABAN 2.5 MG TAB PO SCH ×2 (09:46→21:17)
[2020-05-05] MEDS: LORATADINE 10 MG TAB PO SCH (09:46)
[2020-05-05] MEDS: PANTOPRAZOLE 40 MG TAB PO SCH ×2 (09:46→21:15)
[2020-05-05] MEDS: ALPRAZolam 0.5 MG TAB PO SCH ×2 (09:46→21:16)
[2020-05-05] MEDS: levoFLOXacin 250MG 50 ML IV SCH (09:47)
[2020-05-05] MEDS: AMIODARONE HCL 200 MG TAB PO SCH (09:47)
[2020-05-05] MEDS: CARVEDILOL 12.5 MG TAB PO SCH ×2 (09:47→17:17)
[2020-05-05] MEDS ORDERED: ERTAPENEM SOD INJ 1 GM in SODIUM CHL 0.9% 50 ML IV ONE (11:00)
[2020-05-05 13:00] VITALS: BP 109/53
[2020-05-05 16:54] VITALS: BP 129/80
[2020-05-05 20:51] VITALS: BP 123/65
[2020-05-05] MEDS: traMADol HCL 50 MG TAB PO PRN (23:34)
[2020-05-06] MEDS: HYOSCYAMINE SULF 0.125 MG ODT TAB PO PRN ×2 (04:44→21:07)
[2020-05-06 05:14] VITALS: BP 110/59
[2020-05-06] MEDS: metroNIDAZOLE 500MG/100ML 100 ML IV SCH ×3 (05:19→21:06)
[2020-05-06] MEDS: CARBIDOPA W LEVODOPA 25/100mg TABLET PO SCH ×3 (05:20→21:07)
[2020-05-06] MEDS: LEVOTHYROXINE SODIUM 25 MCG TAB PO SCH (06:09)
[2020-05-06] MEDS: SUCRALFATE 1 GM/10 ML ORAL SUSP PO SCH ×4 (06:09→21:06)
[2020-05-06 09:00] VITALS: BP 123/70
[2020-05-06] MEDS: ERTAPENEM SOD INJ 1 GM in SODIUM CHL 0.9% 50 ML IV SCH (09:00)
[2020-05-06] MEDS: GABAPENTIN 300 MG CAP PO SCH ×2 (09:00→21:07)
[2020-05-06] MEDS: CARVEDILOL 12.5 MG TAB PO SCH ×2 (09:01→17:58)
[2020-05-06] MEDS: PANTOPRAZOLE 40 MG TAB PO SCH ×2 (09:01→21:07)
[2020-05-06] MEDS: LORATADINE 10 MG TAB PO SCH (09:01)
[2020-05-06] MEDS: AMIODARONE HCL 200 MG TAB PO SCH (09:02)
[2020-05-06] MEDS: ALPRAZolam 0.5 MG TAB PO SCH ×2 (09:02→21:07)
[2020-05-06] MEDS: APIXABAN 2.5 MG TAB PO SCH ×2 (09:08→21:06)
[2020-05-06] MEDS ORDERED: ALUM & MAG HYDROX-SIMETH LIQ(MAALOX) 30 ML PO ONE (10:00)
[2020-05-06] MEDS: traMADol HCL 50 MG TAB PO PRN (11:46)
[2020-05-06 13:00] VITALS: BP 102/49
[2020-05-06 17:00] VITALS: BP 103/65
[2020-05-06 21:50] VITALS: BP 114/78
[2020-05-07 05:32] VITALS: BP 98/52
[2020-05-07] MEDS: metroNIDAZOLE 500MG/100ML 100 ML IV SCH (05:39)
[2020-05-07] MEDS: CARBIDOPA W LEVODOPA 25/100mg TABLET PO SCH ×3 (05:39→22:54)
[2020-05-07] MEDS: LEVOTHYROXINE SODIUM 25 MCG TAB PO SCH (06:05)
[2020-05-07] MEDS: SUCRALFATE 1 GM/10 ML ORAL SUSP PO SCH ×4 (06:05→22:00)
[2020-05-07 08:00] VITALS: BP 94/57
[2020-05-07] MEDS: CARVEDILOL 12.5 MG TAB PO SCH (08:00)
[2020-05-07] MEDS: ERTAPENEM SOD INJ 1 GM in SODIUM CHL 0.9% 50 ML IV SCH (09:32)
[2020-05-07] MEDS: ALPRAZolam 0.5 MG TAB PO SCH ×2 (09:32→22:00)
[2020-05-07] MEDS: LORATADINE 10 MG TAB PO SCH (09:32)
[2020-05-07] MEDS: APIXABAN 2.5 MG TAB PO SCH ×2 (09:32→22:50)
[2020-05-07] MEDS: GABAPENTIN 300 MG CAP PO SCH ×2 (09:32→22:51)
[2020-05-07] MEDS: AMIODARONE HCL 200 MG TAB PO SCH (09:32)
[2020-05-07] MEDS: PANTOPRAZOLE 40 MG TAB PO SCH ×2 (09:32→22:48)
[2020-05-07] MEDS ORDERED: CARVEDILOL 3.125 MG TAB PO ONE (11:00)
[2020-05-07 11:16] LABS: Basophils # (auto) 0 10 ^3/uL (0-0.2); Basophils % (auto) 0.7 % (0.0-2.0); Eosinophils # (auto) 0.1 10 ^3/uL (0-0.8); Eosinophils % (auto) 1.5 % (0.0-7.0); Hematocrit 35.3 % (36.0-46.0); Hemoglobin 11.5 g/dL (12.2-16.2); Lymphocytes # (auto) 1.5 10 ^3/uL (0.4-5.4); Lymphocytes % (auto) 22.5 % (10.0-50.0); Mean Corpuscular Hemoglobin 28.1 pg (28.0-32.0); Mean Corpuscular Hgb Conc. 32.5 g/dL (32.0-36.0); Mean Corpuscular Volume 86.4 fL (80.0-100.0); Monocytes # (auto) 0.5 10 ^3/uL (0-1.3); Neutrophils # (auto) 4.4 10 ^3/uL (1.6-8.6); Neutrophils % (auto) 67.3 % (37.0-80.0); Platelet Count (auto) 192 10^3/uL (140-450); Red Blood Cells 4.09 10^6/uL (4.0-5.20); White Blood Cell 6.6 10^3/uL (4.4-10.8)
[2020-05-07 11:21] LABS: Red Cell Distribution Width 22.1 % (11.8-14.3)
[2020-05-07 11:39] LABS: BUN/Creatinine Ratio 12.9; Calcium 8.1 mg/dL (8.5-10.1); Potassium 4.6 mmol/L (3.5-5.1)
[2020-05-07 12:00] VITALS: BP 102/64
[2020-05-07] MEDS: metroNIDAZOLE 500 MG TAB PO SCH ×2 (14:45→22:53)
[2020-05-07 17:00] VITALS: BP 116/74
[2020-05-07 22:00] VITALS: BP 112/72
[2020-05-07] MEDS: HYOSCYAMINE SULF 0.125 MG ODT TAB PO PRN (22:48)
[2020-05-07] MEDS: LINEZOLID 600MG TABLET PO SCH (22:53)
[2020-05-07] MEDS: CARVEDILOL 3.125 MG TAB PO SCH (23:15)
[2020-05-08 05:40] VITALS: BP 109/66
[2020-05-08] MEDS: SUCRALFATE 1 GM/10 ML ORAL SUSP PO SCH ×4 (06:57→21:57)
[2020-05-08] MEDS: CARBIDOPA W LEVODOPA 25/100mg TABLET PO SCH ×3 (06:58→21:58)
[2020-05-08] MEDS: metroNIDAZOLE 500 MG TAB PO SCH ×3 (06:58→21:57)
[2020-05-08] MEDS: LEVOTHYROXINE SODIUM 25 MCG TAB PO SCH (07:00)
[2020-05-08] MEDS: HYOSCYAMINE SULF 0.125 MG ODT TAB PO PRN ×2 (07:02→20:53)
[2020-05-08] MEDS: CARVEDILOL 3.125 MG TAB PO SCH ×2 (08:00→17:18)
[2020-05-08 08:38] VITALS: BP 115/70
[2020-05-08] MEDS: traMADol HCL 50 MG TAB PO PRN ×2 (09:24→20:53)
[2020-05-08] MEDS: GABAPENTIN 300 MG CAP PO SCH ×2 (09:24→21:58)
[2020-05-08] MEDS: APIXABAN 2.5 MG TAB PO SCH ×2 (09:24→21:58)
[2020-05-08] MEDS: PANTOPRAZOLE 40 MG TAB PO SCH ×2 (09:24→21:57)
[2020-05-08] MEDS: LORATADINE 10 MG TAB PO SCH (09:27)
[2020-05-08] MEDS: AMIODARONE HCL 200 MG TAB PO SCH (09:27)
[2020-05-08] MEDS: ALPRAZolam 0.5 MG TAB PO SCH ×2 (09:28→21:57)
[2020-05-08] MEDS: LINEZOLID 600MG TABLET PO SCH ×2 (09:28→23:23)
[2020-05-08] MEDS: ERTAPENEM SOD INJ 1 GM in SODIUM CHL 0.9% 50 ML IV SCH (09:29)
[2020-05-08 12:40] VITALS: BP 96/53
[2020-05-08] MEDS: ONDANSETRON HCL 4 MG/2 ML VIAL IV PRN (16:32)
[2020-05-08 16:59] VITALS: BP 104/79
[2020-05-08 20:00] VITALS: BP 132/58
[2020-05-08 22:00] VITALS: BP 132/58
[2020-05-09] MEDS: traMADol HCL 50 MG TAB PO PRN (03:29)
[2020-05-09] MEDS: ONDANSETRON HCL 4 MG/2 ML VIAL IV PRN (04:25)
[2020-05-09 05:00] VITALS: BP 127/74
[2020-05-09] MEDS: CARBIDOPA W LEVODOPA 25/100mg TABLET PO SCH ×2 (06:23→13:08)
[2020-05-09] MEDS: LEVOTHYROXINE SODIUM 25 MCG TAB PO SCH (06:23)
[2020-05-09] MEDS: metroNIDAZOLE 500 MG TAB PO SCH ×2 (06:24→13:08)
[2020-05-09] MEDS: SUCRALFATE 1 GM/10 ML ORAL SUSP PO SCH ×3 (06:24→16:47)
[2020-05-09] MEDS: CARVEDILOL 3.125 MG TAB PO SCH ×2 (08:00→17:46)
[2020-05-09 09:00] VITALS: BP 109/75
[2020-05-09] MEDS: ERTAPENEM SOD INJ 1 GM in SODIUM CHL 0.9% 50 ML IV SCH (09:17)
[2020-05-09] MEDS: LORATADINE 10 MG TAB PO SCH (09:17)
[2020-05-09] MEDS: APIXABAN 2.5 MG TAB PO SCH (09:18)
[2020-05-09] MEDS: ALPRAZolam 0.5 MG TAB PO SCH (09:18)
[2020-05-09] MEDS: AMIODARONE HCL 200 MG TAB PO SCH (09:18)
[2020-05-09] MEDS: PANTOPRAZOLE 40 MG TAB PO SCH (09:18)
[2020-05-09] MEDS: GABAPENTIN 300 MG CAP PO SCH (09:18)
[2020-05-09] MEDS: LINEZOLID 600MG TABLET PO SCH ×2 (09:27→13:09)
[2020-05-09] MEDS ORDERED: CAR3125T PO ×2 (09:48)
[2020-05-09 12:19] VITALS: BP 107/74
[2020-05-09 12:36] VITALS: BP 107/74
[2020-05-09] MEDS ORDERED: LINE1TAB6 PO ×2 (15:30)
[2020-05-09 17:00] VITALS: BP 120/70
== END 2020-05-09 18:20 | disposition home health service (06) | DRG 389 ==
LOC: ER 13:38 → TELE 13:39 → TELE-CENTR 21:13
PROVIDERS: ADMIT Nurse Practitioner Acute Care; ATTEND Internal Medicine
DX: K56.41 Fecal impaction (principal); N39.0 Urinary tract infection, site not specified; I50.22 Chronic systolic (congestive) heart failure; D68.59 Other primary thrombophilia; I13.0 Hypertensive heart and chronic kidney disease with heart failure and stage 1 through stage 4 chronic kidney disease, or unspecified chronic kidney disease; I24.9 Acute ischemic heart disease, unspecified; K57.90 Diverticulosis of intestine, part unspecified, without perforation or abscess without bleeding; K52.9 Noninfective gastroenteritis and colitis, unspecified; N18.3 Chronic kidney disease, stage 3 (moderate); I48.91 Unspecified atrial fibrillation; G20 Parkinson's disease; E66.9 Obesity, unspecified; B95.2 Enterococcus as the cause of diseases classified elsewhere; B96.4 Proteus (mirabilis) (morganii) as the cause of diseases classified elsewhere; E03.9 Hypothyroidism, unspecified; E78.5 Hyperlipidemia, unspecified; F41.9 Anxiety disorder, unspecified; G62.9 Polyneuropathy, unspecified; I25.119 Atherosclerotic heart disease of native coronary artery with unspecified angina pectoris; J44.9 Chronic obstructive pulmonary disease, unspecified; Z68.33 Body mass index [BMI] 33.0-33.9, adult; Z22.322 Carrier or suspected carrier of Methicillin resistant Staphylococcus aureus; Z79.01 Long term (current) use of anticoagulants; Z79.899 Other long term (current) drug therapy; Z82.5 Family history of asthma and other chronic lower respiratory diseases; Z83.3 Family history of diabetes mellitus; Z87.440 Personal history of urinary (tract) infections; Z90.710 Acquired absence of both cervix and uterus; Z90.49 Acquired absence of other specified parts of digestive tract; Z88.0 Allergy status to penicillin; Z88.5 Allergy status to narcotic agent
CPT/HCPCS: 36415; 51702; 71045; 74176; 80048; 80053; 81001; 82378; 83605; 83880; 84484; 85025; 87040; 87081; 87086; 87088; 87186; 96365; 96367; 96375; 96376; 97163; 97530; G0378; J1335; J1956; J2405; J3490

== ENCOUNTER 2020-05-12 05:46 | Emergency (ER) | payer MEDICARE, OTHER ==
[~2020-05-12] VITALS: Ht 154.9 cm; Wt 77.1 kg
[~2020-05-12 05:46] MED LIST changes: +CAR3125T PO; +CHOLCAP11 PO; +GABA600T PO; +LINE1TAB6 PO; +PANT40TA2 PO; +RANO500T3 PO; +ROSU20TA14 PO; +SPIR25TA8 PO
[2020-05-12 07:11] LABS: Urine Bacteria FEW /hpf (None Seen); Urine Blood Negative /uL (Negative); Urine Specific Gravity 1.004 (1.001-1.035); Urine WBC 84 /hpf (0 - 5); Urine WBC Clumps PRESENT /hpf (None Seen)
[2020-05-12] MEDS ORDERED: PIPERACILLIN-TAZOB 3.375GM 100 ML IV ONE ×2 (08:30→15:15)
[2020-05-12] MEDS ORDERED: SODIUM CHLORIDE 0.9% 1,000 ML IV ONE (08:45)
[2020-05-12 09:26] LABS: Basophils # (auto) 0 10 ^3/uL (0-0.2); Basophils % (auto) 0.4 % (0.0-2.0); Eosinophils # (auto) 0.1 10 ^3/uL (0-0.8); Eosinophils % (auto) 1.9 % (0.0-7.0); Hematocrit 35.1 % (36.0-46.0); Hemoglobin 11.2 g/dL (12.2-16.2); Lymphocytes # (auto) 1.6 10 ^3/uL (0.4-5.4); Lymphocytes % (auto) 32.1 % (10.0-50.0); Mean Corpuscular Hemoglobin 27.4 pg (28.0-32.0); Mean Corpuscular Hgb Conc. 31.9 g/dL (32.0-36.0); Mean Corpuscular Volume 85.9 fL (80.0-100.0); Monocytes # (auto) 0.4 10 ^3/uL (0-1.3); Monocytes % (auto) 8.6 % (0.0-12.0); Neutrophils # (auto) 2.9 10 ^3/uL (1.6-8.6); Nucleated Red Blood Cells % 0.1 %; Platelet Count (auto) 202 10^3/uL (140-450); Red Blood Cells 4.09 10^6/uL (4.0-5.20); Red Cell Distribution Width 21.7 % (11.8-14.3); White Blood Cell 5.1 10^3/uL (4.4-10.8)
[2020-05-12 09:27] LABS: Albumin 3.1 g/dL (3.4-5.0); Calcium 8.5 mg/dL (8.5-10.1); Potassium 3.8 mmol/L (3.5-5.1)
[2020-05-12 09:30] LABS: BUN/Creatinine Ratio 8.4; Bilirubin, Total 0.4 mg/dL (0.2-1.0); Total Protein 6.7 g/dL (6.4-8.2)
[2020-05-12] MEDS ORDERED: ONDANSETRON HCL 4 MG/2 ML VIAL ONE (11:22)
[2020-05-12] MEDS ORDERED: ONDANSETRON HCL 4 MG/2 ML VIAL IV ONE (11:30)
[2020-05-12] MEDS ORDERED: CARB25TA77 (14:51)
[2020-05-12] MEDS ORDERED: CARBIDOPA W LEVODOPA CR 25/100mg TABLET PO ONE (15:15)
[2020-05-12] MEDS ORDERED: CARBIDOPA W LEVODOPA 25/100mg TABLET PO ONE (15:45)
[2020-05-12] MEDS ORDERED: traMADol HCL 50 MG TAB PO ONE (15:45)
[2020-05-12] MEDS ORDERED: NITROFURANTOIN 100 mg CAP PO ONE (15:45)
[2020-05-12 16:01] VITALS: BP 144/63
== END 2020-05-12 18:11 | disposition home or self-care (01) ==
LOC: ER 05:46
DX: N30.00 Acute cystitis without hematuria (principal); G20 Parkinson's disease; E44.1 Mild protein-calorie malnutrition; J44.9 Chronic obstructive pulmonary disease, unspecified; E78.5 Hyperlipidemia, unspecified; I13.0 Hypertensive heart and chronic kidney disease with heart failure and stage 1 through stage 4 chronic kidney disease, or unspecified chronic kidney disease; N18.9 Chronic kidney disease, unspecified; I50.9 Heart failure, unspecified; Z90.710 Acquired absence of both cervix and uterus; Z68.32 Body mass index [BMI] 32.0-32.9, adult; Z88.0 Allergy status to penicillin; Z88.6 Allergy status to analgesic agent
CPT/HCPCS: 36415; 80053; 81001; 83605; 84443; 85025; 87040; 87086; 96365; 96366; 96375; 99285; J2405; J2543; 96367

== ENCOUNTER 2020-05-22 12:50 | Emergency (ER) | payer MEDICARE, OTHER ==
[~2020-05-22] VITALS: Ht 154.9 cm; Wt 79.4 kg
[~2020-05-22 12:50] MED LIST changes: -CAR125T PO; +CARB25TA77; -CELE200C PO; -CHOL20007 PO; -GABA300C11 PO; -NITR-52 PO; -RANO500T2 PO; -SPIR25TA8 PO; -SULF1SUS10 PO
[2020-05-22 14:06] LABS: Basophils # (auto) 0 10 ^3/uL (0-0.2); Basophils % (auto) 0.2 % (0.0-2.0); Eosinophils # (auto) 0.1 10 ^3/uL (0-0.8); Eosinophils % (auto) 1.3 % (0.0-7.0); Hematocrit 32.2 % (36.0-46.0); Hemoglobin 10.5 g/dL (12.2-16.2); Lymphocytes # (auto) 1.6 10 ^3/uL (0.4-5.4); Mean Corpuscular Hemoglobin 27.9 pg (28.0-32.0); Mean Corpuscular Hgb Conc. 32.7 g/dL (32.0-36.0); Mean Corpuscular Volume 85.4 fL (80.0-100.0); Monocytes # (auto) 1.4 10 ^3/uL (0-1.3); Monocytes % (auto) 13.8 % (0.0-12.0); Neutrophils # (auto) 6.8 10 ^3/uL (1.6-8.6); Neutrophils % (auto) 68.7 % (37.0-80.0); Nucleated Red Blood Cells % 0.1 %; Platelet Count (auto) 139 10^3/uL (140-450); Red Blood Cells 3.77 10^6/uL (4.0-5.20); Red Cell Distribution Width 19.6 % (11.8-14.3); White Blood Cell 9.9 10^3/uL (4.4-10.8)
[2020-05-22 14:19] LABS: Albumin 3.2 g/dL (3.4-5.0); Anion Gap 5 (5-15); BUN/Creatinine Ratio 10.8; Blood Urea Nitrogen 12 mg/dL (7-18); Calcium 8.2 mg/dL (8.5-10.1); Carbon Dioxide 28 mmol/L (21-32); Chloride 100 mmol/L (98-107); GFR African American 60 mL/min; GFR Non-African American 50 mL/min; Glucose 108 mg/dL (74-106); Potassium 4.1 mmol/L (3.5-5.1); Sodium 133 mmol/L (136-145)
[2020-05-22 14:24] LABS: Alanine Aminotransferase 12 U/L (13-56); Alkaline Phosphatase 77 U/L (45-117); Aspartate Aminotransferase 17 U/L (15-37); Bilirubin, Total 0.4 mg/dL (0.2-1.0); Total Protein 6.9 g/dL (6.4-8.2)
[2020-05-22 14:27] LABS: INR 1.07 (0.9-1.15); Partial Thromboplastin Time 30.6 sec (23.64-32.05)
[2020-05-22 18:21] VITALS: BP 118/52
[2020-08-13] MEDS ORDERED: MIDO5TAB2 PO (16:42)
[2020-08-16] MEDS ORDERED: PANT40TA2 PO (11:28)
[2020-08-16] MEDS ORDERED: SUCR1TAB22 PO (11:28)
== END 2020-05-22 18:23 | disposition home or self-care (01) ==
LOC: ER 12:50
DX: S82.831A Other fracture of upper and lower end of right fibula, initial encounter for closed fracture (principal); S82.434A Nondisplaced oblique fracture of shaft of right fibula, initial encounter for closed fracture; G20 Parkinson's disease; I48.91 Unspecified atrial fibrillation; E66.9 Obesity, unspecified; Z68.33 Body mass index [BMI] 33.0-33.9, adult; W18.39XA Other fall on same level, initial encounter; Y93.89 Activity, other specified; Y92.89 Other specified places as the place of occurrence of the external cause; Y99.8 Other external cause status
CPT/HCPCS: 29515; 36415; 70450; 71045; 72192; 73590; 80053; 84484; 85025; 85610; 85730; 93005

== ENCOUNTER 2020-06-07 13:50 | Emergency (ER) | payer MEDICARE, BC ==
[~2020-06-07] VITALS: Ht 154.9 cm; Wt 74.8 kg
[2020-06-07] MEDS ORDERED: levoFLOXacin 250MG 50 ML IV ONE (16:15)
[2020-06-07] MEDS ORDERED: ACETAMINOPHEN 500 MG TAB PO ONE (16:15)
[2020-06-07 16:59] LABS: Basophils # (auto) 0 10 ^3/uL (0-0.2); Basophils % (auto) 0.4 % (0.0-2.0); Eosinophils # (auto) 0.1 10 ^3/uL (0-0.8); Hematocrit 35.4 % (36.0-46.0); Hemoglobin 11.4 g/dL (12.2-16.2); Lymphocytes # (auto) 2.2 10 ^3/uL (0.4-5.4); Mean Corpuscular Hemoglobin 27.9 pg (28.0-32.0); Mean Corpuscular Hgb Conc. 32.1 g/dL (32.0-36.0); Mean Corpuscular Volume 86.8 fL (80.0-100.0); Monocytes # (auto) 0.6 10 ^3/uL (0-1.3); Neutrophils # (auto) 4.1 10 ^3/uL (1.6-8.6); Neutrophils % (auto) 57.6 % (37.0-80.0); Platelet Count (auto) 295 10^3/uL (140-450); Red Blood Cells 4.08 10^6/uL (4.0-5.20); Red Cell Distribution Width 19.7 % (11.8-14.3); White Blood Cell 7.1 10^3/uL (4.4-10.8)
[2020-06-07] MEDS ORDERED: PANTOPRAZOLE 40 MG/10 ML VIAL INJ IV ONE (17:00)
[2020-06-07] MEDS ORDERED: ONDANSETRON HCL 4 MG/2 ML VIAL IV ONE (17:00)
[2020-06-07 17:04] LABS: Albumin 3.2 g/dL (3.4-5.0); Anion Gap 7 (5-15); Blood Urea Nitrogen 8 mg/dL (7-18); Calcium 8.8 mg/dL (8.5-10.1); Carbon Dioxide 27 mmol/L (21-32); Chloride 106 mmol/L (98-107); Glucose 96 mg/dL (74-106); INR 1.08 (0.9-1.15); Partial Thromboplastin Time 30.2 sec (23.64-32.05); Potassium 4.2 mmol/L (3.5-5.1); Sodium 140 mmol/L (136-145)
[2020-06-07 17:12] LABS: Alanine Aminotransferase 7 U/L (13-56); Alkaline Phosphatase 121 U/L (45-117); Aspartate Aminotransferase 19 U/L (15-37); BUN/Creatinine Ratio 6.2; Bilirubin, Total 0.4 mg/dL (0.2-1.0); GFR African American 50 mL/min; GFR Non-African American 41 mL/min; Total Protein 7.4 g/dL (6.4-8.2)
[2020-06-07 17:13] LABS: Amylase 23 U/L (25-115); Lipase 18 U/L (73-393)
[2020-06-07 17:30] LABS: Magnesium 2.6 mg/dL (1.6-2.6)
[2020-06-07 17:33] LABS: Urine Bacteria FEW /hpf (None Seen); Urine Blood 1+ /uL (Negative); Urine Specific Gravity 1.016 (1.001-1.035); Urine WBC 1059 /hpf (0 - 5); Urine WBC Clumps PRESENT /hpf (None Seen)
[2020-06-07 17:39] LABS: CRP High Sensitivity 1.79 mg/dL (< 0.3)
[2020-06-07 21:00] VITALS: BP 113/55
== END 2020-06-07 21:51 | disposition home or self-care (01) ==
LOC: ER 13:50
DX: N39.0 Urinary tract infection, site not specified (principal); I13.0 Hypertensive heart and chronic kidney disease with heart failure and stage 1 through stage 4 chronic kidney disease, or unspecified chronic kidney disease; N18.9 Chronic kidney disease, unspecified; I50.9 Heart failure, unspecified; J44.9 Chronic obstructive pulmonary disease, unspecified; E78.5 Hyperlipidemia, unspecified; D64.9 Anemia, unspecified; R94.6 Abnormal results of thyroid function studies; R79.89 Other specified abnormal findings of blood chemistry; Z90.710 Acquired absence of both cervix and uterus; Z20.828 Contact with and (suspected) exposure to other viral communicable diseases
CPT/HCPCS: 36415; 51702; 71045; 80053; 81001; 82150; 82728; 83605; 83615; 83690; 83735; 83880; 84443; 84484; 85025; 85610; 85730; 86141; 87040; 87070; 87086; 87088; 87186; 87804; 87880; 93005; 96365; 96375; 99285; C9113; C9803; J1956; J2405; J7030; U0003

== ENCOUNTER 2020-06-24 15:03 | Inpatient (IN) | payer MEDICARE, BC ==
[~2020-06-24] VITALS: Ht 154.9 cm; Wt 74.1 kg
[2020-06-24 18:48] LABS: Eosinophils # (auto) 0.1 10 ^3/uL (0-0.8); Hematocrit 39.1 % (36.0-46.0); Monocytes # (auto) 0.5 10 ^3/uL (0-1.3)
[2020-06-24 18:52] LABS: Basophils # (auto) 0 10 ^3/uL (0-0.2); Basophils % (auto) 0.7 % (0.0-2.0); Eosinophils % (auto) 1.7 % (0.0-7.0); Hemoglobin 12.6 g/dL (12.2-16.2); Lymphocytes # (auto) 2.2 10 ^3/uL (0.4-5.4); Lymphocytes % (auto) 33.2 % (10.0-50.0); Mean Corpuscular Hemoglobin 28.4 pg (28.0-32.0); Mean Corpuscular Hgb Conc. 32.4 g/dL (32.0-36.0); Mean Corpuscular Volume 87.7 fL (80.0-100.0); Monocytes % (auto) 7.9 % (0.0-12.0); Neutrophils # (auto) 3.7 10 ^3/uL (1.6-8.6); Neutrophils % (auto) 56.5 % (37.0-80.0); Nucleated Red Blood Cells % 0.2 %; Platelet Count (auto) 227 10^3/uL (140-450); Red Blood Cells 4.45 10^6/uL (4.0-5.20); Red Cell Distribution Width 18.7 % (11.8-14.3); White Blood Cell 6.6 10^3/uL (4.4-10.8)
[2020-06-24 18:59] LABS: Albumin 3.7 g/dL (3.4-5.0); Anion Gap 8 (5-15); Blood Urea Nitrogen 14 mg/dL (7-18); Calcium 9.1 mg/dL (8.5-10.1); Carbon Dioxide 26 mmol/L (21-32); Chloride 105 mmol/L (98-107); Glucose 91 mg/dL (74-106); Magnesium 2.6 mg/dL (1.6-2.6); Sodium 139 mmol/L (136-145)
[2020-06-24 19:10] LABS: Alanine Aminotransferase 8 U/L (13-56); Alkaline Phosphatase 105 U/L (45-117); Aspartate Aminotransferase 25 U/L (15-37); BUN/Creatinine Ratio 11.5; Bilirubin, Total 0.6 mg/dL (0.2-1.0); GFR African American 54 mL/min; GFR Non-African American 45 mL/min; Total Protein 7.6 g/dL (6.4-8.2)
[2020-06-24] MEDS ORDERED: NITROGLYCERIN 0.4 MG SL TAB SL PRN (20:45)
[2020-06-24] MEDS ORDERED: HYDROcodone-ACET 5/325MG TAB PO PRN (20:45)
[2020-06-24] MEDS ORDERED: LORazepam 0.5 MG TAB PO PRN (20:45)
[2020-06-24] MEDS ORDERED: DOCUSATE SOD 100 MG CAP PO PRN (20:45)
[2020-06-24] MEDS ORDERED: ACETAMINOPHEN 500 MG TAB PO PRN (20:45)
[2020-06-24] MEDS ORDERED: ALBUTEROL SULF HFA 90MCG INH 200DOSE IN SCH (22:00)
[2020-06-24 22:31] LABS: INR 1.11 (0.9-1.15); Partial Thromboplastin Time 25.2 sec (23.64-32.05)
[2020-06-24] MEDS: SODIUM CHLORIDE 0.9% 1,000 ML IV SCH (23:16)
[2020-06-24] MEDS: DOXYCYCLINE 100 MG TAB/CAP PO SCH (23:16)
[2020-06-25] MEDS ORDERED: GABAPENTIN 300 MG CAP PO ONE (01:45)
[2020-06-25] MEDS ORDERED: CARBIDOPA W LEVODOPA 25/100mg TABLET PO ONE (02:00)
[2020-06-25] MEDS ORDERED: ALBUTEROL SULF 2.5 MG/0.5ML(0.5%) NEB SOLN NEB PRN (02:15)
[2020-06-25 03:22] VITALS: BP 164/85
[2020-06-25] MEDS: CARBIDOPA W LEVODOPA 25/100mg TABLET PO SCH ×3 (06:00→21:27)
--- NOTE | 2020-06-25 09:07 | NUR ---
PT ASSESSED FOR PRN HHN TX. PT IS ON 2LNC, SPO2 96%, HR 67, RR 18. NO S/S OF RESPIRATORY DISTRESS. PRN TX NOT INDICATED AT THIS TIME. WILL CONTINUE TO MONITOR.
[2020-06-25] MEDS: GABAPENTIN 300 MG CAP PO SCH ×2 (09:19→21:26)
[2020-06-25] MEDS: ENOXAPARIN SOD 40 MG/0.4 ML SYRINGE SC SCH (09:19)
[2020-06-25] MEDS: CARVEDILOL 3.125 MG TAB PO SCH ×2 (09:19→21:27)
[2020-06-25] MEDS: DOXYCYCLINE 100 MG TAB/CAP PO SCH ×2 (09:19→21:27)
[2020-06-25] MEDS ORDERED: ASCORBIC ACID 1,000 MG TAB PO SCH (10:00)
[2020-06-25] MEDS ORDERED: ZINC SULFATE 220mg CAP or TAB PO SCH (10:00)
[2020-06-25 10:18] LABS: Basophils # (auto) 0.1 10 ^3/uL (0-0.2); Basophils % (auto) 0.8 % (0.0-2.0); Eosinophils # (auto) 0.1 10 ^3/uL (0-0.8); Eosinophils % (auto) 2.1 % (0.0-7.0); Hematocrit 37.7 % (36.0-46.0); Lymphocytes # (auto) 2.3 10 ^3/uL (0.4-5.4); Mean Corpuscular Hemoglobin 28.1 pg (28.0-32.0); Mean Corpuscular Hgb Conc. 31.8 g/dL (32.0-36.0); Mean Corpuscular Volume 88.5 fL (80.0-100.0); Monocytes # (auto) 0.5 10 ^3/uL (0-1.3); Monocytes % (auto) 7.6 % (0.0-12.0); Neutrophils # (auto) 3.8 10 ^3/uL (1.6-8.6); Neutrophils % (auto) 55.5 % (37.0-80.0); Nucleated Red Blood Cells % 0.3 %; Platelet Count (auto) 229 10^3/uL (140-450); Red Blood Cells 4.26 10^6/uL (4.0-5.20); Red Cell Distribution Width 18.2 % (11.8-14.3); White Blood Cell 6.8 10^3/uL (4.4-10.8)
[2020-06-25 10:34] LABS: Albumin 3.1 g/dL (3.4-5.0); Calcium 8.9 mg/dL (8.5-10.1); Potassium 3.9 mmol/L (3.5-5.1)
[2020-06-25 10:39] LABS: BUN/Creatinine Ratio 11.7; Bilirubin, Total 0.5 mg/dL (0.2-1.0); Total Protein 6.9 g/dL (6.4-8.2)
[2020-06-25] MEDS ORDERED: LEVOTHYROXINE SODIUM 25 MCG TAB PO ONE (12:45)
[2020-06-25] MEDS ORDERED: AMIODARONE HCL 200 MG TAB PO ONE (12:45)
[2020-06-25] MEDS: SODIUM CHLORIDE 0.9% 1,000 ML IV SCH (13:25)
[2020-06-25] MEDS: ALPRAZolam 0.25 MG TAB PO SCH ×2 (13:52→21:27)
[2020-06-25] MEDS: methylPREDNISolone SOD SUCC 40 MG/ML VL IV SCH ×2 (13:52→21:25)
[2020-06-25 15:10] LABS: Urine Bacteria FEW /hpf (None Seen); Urine Blood Negative /uL (Negative); Urine Specific Gravity 1.007 (1.001-1.035); Urine WBC 4 /hpf (0 - 5)
--- NOTE | 2020-06-25 17:35 | NUR ---
report taken from paperboard box maker
--- NOTE | 2020-06-25 17:54 | NUR ---
Telemetry admit from ER ADRIANE FRIEDMAN admitted to Telemetry unit after SBAR received. Patient oriented to JOSÉ MIGUEL GONZALEZ, primary RN, unit, room, bed, and unit policies regarding patient care and visiting hours. Patient now on continuous telemetry monitoring, tele box # [id number] and telemetry reading on arrival to unit is . Patient placed on bedside oxygen, weighed by bedscale and encouraged to call if they need something. All questions and concerns addressed, patient verbalized understanding. Note:
[2020-06-25 18:00] VITALS: BP 132/91
[2020-06-25] MEDS: IPRATROPIUM BROM 0.5 MG/2.5ML INH SOL NEB SCH (18:00)
--- NOTE | 2020-06-25 18:40 | NUR ---
Respiratory note: PT SEEN AND ASSESSED FOR PRN MED NEB TX AT 1840. TREATMENT IS NOT INDICATED AT THIS TIME, PT DISPLAYING NO SIGNS OF DISTRESS. HR 77 RR 20 98% ON 2L NASAL CANNULA.
--- NOTE | 2020-06-25 20:00 | NUR ---
Opening Shift Note Assumed care of patient, awake and alert. No S/S of distress/SOB or pain. Instructed on POC and to call for assist PRN, will continue to monitor for changes Q1hr and PRN.Incontinent of urine ,keep clean and dry.
[2020-06-25 21:30] VITALS: BP 126/79
--- NOTE | 2020-06-26 01:00 | NUR ---
IV insertion IV access obtained, via clean sterile technique by inserting 22 gauge catheter at wrist after attempt by Olga Hoffman. IV secured properly. No trauma to site. Patient tolerated procedure well.
[2020-06-26 05:00] VITALS: BP 118/74
[2020-06-26] MEDS: methylPREDNISolone SOD SUCC 40 MG/ML VL IV SCH ×2 (05:46→13:17)
[2020-06-26] MEDS: CARBIDOPA W LEVODOPA 25/100mg TABLET PO SCH ×2 (05:46→13:17)
[2020-06-26] MEDS: ALPRAZolam 0.25 MG TAB PO SCH ×2 (05:47→13:17)
[2020-06-26] MEDS: SODIUM CHLORIDE 0.9% 1,000 ML IV SCH (05:57)
--- NOTE | 2020-06-26 06:00 | NUR ---
Patient accidentally pulled out the i.v.line in the right wrist.
[2020-06-26] MEDS: IPRATROPIUM BROM 0.5 MG/2.5ML INH SOL NEB SCH ×3 (06:30→12:02)
[2020-06-26] MEDS ORDERED: LEVOTHYROXINE SODIUM 25 MCG TAB PO SCH (07:00)
--- NOTE | 2020-06-26 07:36 | NUR ---
Report given to Olga Heard, patient is resting no distress.
[2020-06-26 09:00] VITALS: BP 112/77
[2020-06-26] MEDS: DOXYCYCLINE 100 MG TAB/CAP PO SCH (09:56)
[2020-06-26] MEDS: ENOXAPARIN SOD 40 MG/0.4 ML SYRINGE SC SCH (09:56)
[2020-06-26] MEDS: GABAPENTIN 300 MG CAP PO SCH (09:56)
[2020-06-26] MEDS: CARVEDILOL 3.125 MG TAB PO SCH (09:56)
[2020-06-26] MEDS ORDERED: AMIODARONE HCL 200 MG TAB PO SCH (10:00)
--- NOTE | 2020-06-26 12:30 | NUR ---
TOLD PT SHE HAS DISCHARGE ORDER PENDING COVID RESULT PT VERBALIZED UNDERSTANDING STATED SHE WILL TELL HER SON
[2020-06-26 13:00] VITALS: BP 106/61
[2020-06-26 17:00] VITALS: BP 104/65
--- NOTE | 2020-06-26 17:07 | NUR ---
CALLED PT SON REGARDING DISCHARGE AND X2 NEGATIOVE COVID RESULT PT SON STATED HE WILL BE HERE BETWEEN 7-8 TO HAND ALTERATIONS SEAMSTRESS PT
--- NOTE | 2020-06-26 17:40 | NUR ---
PT SON CALLED STATED "I JUST SPOKE WITH MY MOM SHE DOESNT FEEL LIKE LEAVING TONIGHT AND ITS NOT GOOD FOR ME EITHER" SON WANTS TO SPEAK WITH CHARGE NURSE. CHARGE NURSE CALLED STATED THEY WILL CALL SON REGARDING THIS DISCHARGE
--- NOTE | 2020-06-26 18:16 | NUR ---
PER CONSUMER EDUCATION SPECIALIST PT SON WILL BE PICKING UP PATIENT
--- NOTE | 2020-06-26 20:20 | NUR ---
PATIENT DISCHARGED SON MARILYN PICKED UP PATIENT. ALL DISCHARGE PAPERWORK WITH PATIENT. PATIENT LEFT WITH OWN WHEELCHAIR. PATIENT COMPLAINED OF HEADACHE AT CAR; SON ASKED PATIENT IF SHE WANTED TO GO TO THE ER OR GO HOME, PATIENT STATED SHE WANTED TO GO HOME. ADVISED PATIENT AND SON TO RETURN TO THE ER IF NEEDED. VITALS SIGNS WITHIN NORMAL LIMITS. TELEBOX RETURNED TO TELE MONITORS. IV DC'd with clean sterile technique, catheter fully intact. Pressure dressing applied to site. Patient tolerated well.
== END 2020-06-26 20:20 | disposition home or self-care (01) | DRG 190 ==
LOC: ER 15:03 → TELE 15:04 → TELE-WESTW 06-25 17:46
PROVIDERS: ADMIT Hospitalist; ATTEND Family Medicine
DX: J44.1 Chronic obstructive pulmonary disease with (acute) exacerbation (principal); I50.43 Acute on chronic combined systolic (congestive) and diastolic (congestive) heart failure; I48.21 Permanent atrial fibrillation; I20.0 Unstable angina; R06.03 Acute respiratory distress; J20.9 Acute bronchitis, unspecified; I11.0 Hypertensive heart disease with heart failure; E78.5 Hyperlipidemia, unspecified; E03.9 Hypothyroidism, unspecified; G62.9 Polyneuropathy, unspecified; G20 Parkinson's disease; J44.0 Chronic obstructive pulmonary disease with (acute) lower respiratory infection; Z88.6 Allergy status to analgesic agent; Z88.0 Allergy status to penicillin; Z88.8 Allergy status to other drugs, medicaments and biological substances; E78.00 Pure hypercholesterolemia, unspecified; Z81.1 Family history of alcohol abuse and dependence; Z83.3 Family history of diabetes mellitus; Z83.6 Family history of other diseases of the respiratory system; Z84.1 Family history of disorders of kidney and ureter; Z82.49 Family history of ischemic heart disease and other diseases of the circulatory system; Z90.710 Acquired absence of both cervix and uterus; Z20.828 Contact with and (suspected) exposure to other viral communicable diseases
CPT/HCPCS: 36415; 71045; 80053; 80061; 81001; 83735; 83880; 84443; 84484; 85025; 85610; 85730; 87081; 93005; 94640; 96360; 96372; G0378

== ENCOUNTER 2020-09-26 08:18 | Emergency (ER) | payer MEDICARE, BC ==
[~2020-09-26] VITALS: Ht 154.9 cm; Wt 78.9 kg
[~2020-09-26 08:18] MED LIST changes: +MIDO5TAB2 PO; +SUCR1TAB22 PO
[2020-09-26 10:01] LABS: Basophils # (auto) 0.1 10 ^3/uL (0-0.2); Basophils % (auto) 0.7 % (0.0-2.0); Eosinophils # (auto) 1.2 10 ^3/uL (0-0.8); Hematocrit 32.5 % (36.0-46.0); Hemoglobin 10.6 g/dL (12.2-16.2); Lymphocytes # (auto) 1.9 10 ^3/uL (0.4-5.4); Lymphocytes % (auto) 18.7 % (10.0-50.0); Mean Corpuscular Hemoglobin 28.7 pg (28.0-32.0); Mean Corpuscular Hgb Conc. 32.7 g/dL (32.0-36.0); Mean Corpuscular Volume 87.7 fL (80.0-100.0); Monocytes % (auto) 9.7 % (0.0-12.0); Neutrophils # (auto) 5.9 10 ^3/uL (1.6-8.6); Neutrophils % (auto) 58.9 % (37.0-80.0); Nucleated Red Blood Cells % 0.1 %; Platelet Count (auto) 394 10^3/uL (140-450); Red Blood Cells 3.71 10^6/uL (4.0-5.20); White Blood Cell 9.9 10^3/uL (4.4-10.8)
[2020-09-26 10:18] LABS: Albumin 2.7 g/dL (3.4-5.0); Anion Gap 6 (5-15); Blood Urea Nitrogen 12 mg/dL (7-18); Calcium 8.5 mg/dL (8.5-10.1); Carbon Dioxide 27 mmol/L (21-32); Chloride 101 mmol/L (98-107); Glucose 92 mg/dL (74-106); Magnesium 2.7 mg/dL (1.6-2.6); Potassium 4.5 mmol/L (3.5-5.1); Sodium 134 mmol/L (136-145)
[2020-09-26 10:23] LABS: Alanine Aminotransferase 7 U/L (13-56); Alkaline Phosphatase 104 U/L (45-117); Aspartate Aminotransferase 14 U/L (15-37); Bilirubin, Total 0.3 mg/dL (0.2-1.0); GFR African American 55 mL/min; GFR Non-African American 45 mL/min; Total Protein 7.3 g/dL (6.4-8.2)
[2020-09-26 10:25] LABS: INR 1.08 (0.9-1.15); Partial Thromboplastin Time 27.7 sec (23.0-31.2)
[2020-09-26] MEDS ORDERED: PANTOPRAZOLE 40 MG TAB PO ONE (10:30)
[2020-09-26] MEDS ORDERED: ONDANSETRON HCL 4 MG/2 ML VIAL IV ONE (11:45)
[2020-09-26 12:53] LABS: Urine Bacteria FEW /hpf (None Seen); Urine Blood Negative /uL (Negative); Urine Specific Gravity 1.005 (1.001-1.035); Urine WBC <1 /hpf (0 - 5)
[2020-09-26 16:30] VITALS: BP 117/50
== END 2020-09-26 16:47 | disposition home or self-care (01) ==
LOC: ER 08:18
DX: S32.010D Wedge compression fracture of first lumbar vertebra, subsequent encounter for fracture with routine healing (principal); R10.9 Unspecified abdominal pain; N18.30 Chronic kidney disease, stage 3 unspecified; D50.9 Iron deficiency anemia, unspecified; G20 Parkinson's disease; Z20.828 Contact with and (suspected) exposure to other viral communicable diseases; X58.XXXD Exposure to other specified factors, subsequent encounter
CPT/HCPCS: 36415; 71045; 74176; 80053; 81001; 83605; 83690; 83735; 83880; 84484; 85025; 85610; 85730; 87040; 87426; 93005; 96374; 99285; C9803; J2405; U0003